=== PATIENT | female | born 1985 | race Caucasian/White ===

== ENCOUNTER → 2021-10-26 | Outpatient (CLI) | payer OTHER ==
[2021-10-26 10:04] LABS: Urine Bacteria FEW /hpf (None Seen); Urine Blood Negative /uL (Negative); Urine Hyaline Cast MANY /lpf (0 - 2); Urine Mucus FEW (None Seen); Urine Specific Gravity 1.031 (1.001-1.035); Urine WBC 3 /hpf (0 - 5)
[2021-10-26 10:10] LABS: Basophils # (auto) 0 10 ^3/uL (0-0.2); Basophils % (auto) 0.5 % (0.0-2.0); Eosinophils # (auto) 0.3 10 ^3/uL (0-0.8); Eosinophils % (auto) 5.3 % (0.0-7.0); Hematocrit 38.4 % (36.0-46.0); Hemoglobin 12.8 g/dL (12.2-16.2); Lymphocytes % (auto) 31.8 % (10.0-50.0); Mean Corpuscular Hemoglobin 29.9 pg (28.0-32.0); Mean Corpuscular Hgb Conc. 33.2 g/dL (32.0-36.0); Mean Corpuscular Volume 90.1 fL (80.0-100.0); Monocytes # (auto) 0.4 10 ^3/uL (0-1.3); Monocytes % (auto) 5.9 % (0.0-12.0); Neutrophils # (auto) 3.6 10 ^3/uL (1.6-8.6); Neutrophils % (auto) 56.5 % (37.0-80.0); Nucleated Red Blood Cells % 0.1 %; Red Blood Cells 4.26 10^6/uL (4.0-5.20); Red Cell Distribution Width 13.9 % (11.8-14.3); White Blood Cell 6.3 10^3/uL (4.4-10.8)
[2021-10-26 10:38] LABS: INR 0.94 (0.9-1.15)
[2021-10-26 10:52] LABS: Potassium 3.3 mmol/L (3.5-5.1)
[2021-10-26 11:02] LABS: Albumin 3.3 g/dL (3.4-5.0); BUN/Creatinine Ratio 13.9; Bilirubin, Total 0.5 mg/dL (0.2-1.0); Calcium 9.1 mg/dL (8.5-10.1); Total Protein 7.3 g/dL (6.4-8.2)
== END | disposition home or self-care (01) ==
LOC: LAB 09:29
PROVIDERS: ATTEND Student in an Organized Health Care Education/Training Program
DX: Z01.812 Encounter for preprocedural laboratory examination (principal); I10 Essential (primary) hypertension; R73.9 Hyperglycemia, unspecified
CPT/HCPCS: 36415; 80053; 81001; 83036; 85025; 85610; 85730

== ENCOUNTER → 2022-05-23 | Outpatient (CLI) | payer MEDICARE, OTHER | END | disposition home or self-care (01) | LOC: LAB 11:03 | PROVIDERS: ATTEND Internal Medicine Pulmonary Disease | DX: Z01.812 Encounter for preprocedural laboratory examination (principal); Z20.822 Contact with and (suspected) exposure to COVID-19 | CPT/HCPCS: 36415 ==

== ENCOUNTER → 2022-05-24 | Outpatient (CLI) | payer MEDICARE, OTHER ==
[~2022-05-24] MED LIST: ALBUTEROL SULF 2.5 MG/0.5ML(0.5%) NEB SOLN ONE
== END | disposition home or self-care (01) ==
LOC: PF 08:10
PROVIDERS: ATTEND Internal Medicine Pulmonary Disease
DX: R06.00 Dyspnea, unspecified (principal); R06.02 Shortness of breath
CPT/HCPCS: 94060; 94727; 94729

== ENCOUNTER 2023-02-07 12:09 | Emergency (ER) | payer MEDICARE, OTHER ==
[~2023-02-07] VITALS: Ht 160 cm; Wt 112.8 kg
[2023-02-07 12:47] VITALS: BP 114/86
[2023-02-07] MEDS ORDERED: DexAMETHasone SOD PHOS 10MG/1ML VIAL INJ IM ONE (13:15)
[2023-02-07] MEDS ORDERED: IPRATROPIUM BROM 0.5 MG/2.5ML INH SOL NEB ONE (13:15)
[2023-02-07] MEDS ORDERED: ALBUTEROL SULF 2.5 MG/0.5ML(0.5%) NEB SOLN NEB ONE (13:15)
[2023-02-07] MEDS ORDERED: ALBU108A5 IN (14:42)
== END 2023-02-07 14:46 | disposition home or self-care (01) ==
LOC: ER 12:09
DX: J45.901 Unspecified asthma with (acute) exacerbation (principal); E66.01 Morbid (severe) obesity due to excess calories; Z68.41 Body mass index [BMI] 40.0-44.9, adult
CPT/HCPCS: 71046; 94640; 96372; 99283; J1100; J7644

== ENCOUNTER → 2023-02-16 | Outpatient (CLI) | payer MEDICARE ==
[~2023-02-16] MED LIST changes: +ALBU108A5 IN; -ALBUTEROL SULF 2.5 MG/0.5ML(0.5%) NEB SOLN ONE
[2023-02-16 10:55] LABS: Basophils # (auto) 0.1 10 ^3/uL (0-0.2); Basophils % (auto) 0.6 % (0.0-2.0); Eosinophils # (auto) 0.5 10 ^3/uL (0-0.8); Eosinophils % (auto) 4.6 % (0.0-7.0); Hematocrit 40.2 % (36.0-46.0); Hemoglobin 13.5 g/dL (12.2-16.2); Lymphocytes # (auto) 2.9 10 ^3/uL (0.4-5.4); Lymphocytes % (auto) 28.8 % (10.0-50.0); Mean Corpuscular Hemoglobin 30.5 pg (28.0-32.0); Mean Corpuscular Hgb Conc. 33.7 g/dL (32.0-36.0); Mean Corpuscular Volume 90.4 fL (80.0-100.0); Monocytes # (auto) 0.6 10 ^3/uL (0-1.3); Neutrophils # (auto) 6.1 10 ^3/uL (1.6-8.6); Red Blood Cells 4.44 10^6/uL (4.0-5.20); Red Cell Distribution Width 14.9 % (11.8-14.3); White Blood Cell 10.1 10^3/uL (4.4-10.8)
[2023-02-16 11:36] LABS: Albumin 3.1 g/dL (3.4-5.0); Potassium 3.4 mmol/L (3.5-5.1)
[2023-02-16 11:44] LABS: BUN/Creatinine Ratio 14.5 (10.0-20.0); Bilirubin, Total 0.4 mg/dL (0.2-1.0); Calcium 9.2 mg/dL (8.5-10.1); Total Protein 7.6 g/dL (6.4-8.2)
[2023-02-16 11:49] LABS: Urine Bacteria NONE SEEN /hpf (None Seen); Urine Blood Negative /uL (Negative); Urine Specific Gravity 1.015 (1.001-1.035); Urine WBC 1 /hpf (0 - 5)
== END | disposition home or self-care (01) ==
LOC: LAB 10:41
PROVIDERS: ATTEND Student in an Organized Health Care Education/Training Program
DX: I10 Essential (primary) hypertension (principal); R73.9 Hyperglycemia, unspecified; E03.8 Other specified hypothyroidism
CPT/HCPCS: 36415; 80053; 80061; 81001; 83036; 84439; 84443; 85025

== ENCOUNTER 2023-07-04 11:43 | Inpatient (IN) | payer MEDICARE, OTHER ==
[~2023-07-04] VITALS: Ht 157.5 cm; Wt 111.5 kg
[2023-07-04 12:48] LABS: Basophils # (auto) 0 10 ^3/uL (0-0.2); Basophils % (auto) 0.4 % (0.0-2.0); Eosinophils # (auto) 0 10 ^3/uL (0-0.8); Eosinophils % (auto) 0.6 % (0.0-7.0); Hematocrit 40.1 % (36.0-46.0); Hemoglobin 13.5 g/dL (12.2-16.2); Lymphocytes # (auto) 1.8 10 ^3/uL (0.4-5.4); Lymphocytes % (auto) 29.2 % (10.0-50.0); Mean Corpuscular Hemoglobin 30.9 pg (28.0-32.0); Mean Corpuscular Hgb Conc. 33.6 g/dL (32.0-36.0); Mean Corpuscular Volume 91.8 fL (80.0-100.0); Monocytes # (auto) 0.7 10 ^3/uL (0-1.3); Monocytes % (auto) 11.7 % (0.0-12.0); Neutrophils # (auto) 3.6 10 ^3/uL (1.6-8.6); Neutrophils % (auto) 58.1 % (37.0-80.0); Red Blood Cells 4.37 10^6/uL (4.0-5.20); Red Cell Distribution Width 13.5 % (11.8-14.3); White Blood Cell 6.1 10^3/uL (4.4-10.8)
[2023-07-04 13:06] LABS: Alanine Aminotransferase 27 U/L (7-40); Albumin 4.4 g/dL (3.2-4.8); Alkaline Phosphatase 92 U/L (46-116); Anion Gap 7 (5-15); Aspartate Aminotransferase 27 U/L (13-40); BUN/Creatinine Ratio 11.5 (10.0-20.0); Blood Urea Nitrogen 12 mg/dL (9-23); Calcium 9.2 mg/dL (8.7-10.4); Carbon Dioxide 28 mmol/L (20-30); Chloride 100 mmol/L (98-107); Glucose 97 mg/dL (74-106); Lipase 65 U/L (12-53); Potassium 3.6 mmol/L (3.5-5.1); Sodium 135 mmol/L (136-145)
[2023-07-04 13:07] LABS: Bilirubin, Total 0.4 mg/dL (0.2-1.0); Total Protein 6.4 g/dL (5.7-8.2)
[2023-07-04 13:26] LABS: Amylase 66 U/L (30-118)
[2023-07-04 14:18] LABS: Urine Bacteria NONE SEEN /hpf (None Seen); Urine Blood TRACE /uL (Negative); Urine Clarity Clear (Clear); Urine Color Yellow (Yellow); Urine Protein, UAD Negative (Negative); Urine Urobilinogen Normal (Negative); Urine WBC 1 /hpf (0 - 5)
[2023-07-04] MEDS ORDERED: MORPHINE SULFATE 4 MG/ML SYR/VIAL IV ONE (17:30)
[2023-07-04] MEDS ORDERED: ONDANSETRON HCL 4 MG/2 ML VIAL IV ONE (17:30)
[2023-07-04] MEDS ORDERED: methylPREDNISolone SOD SUCC 125 MG/2 ML VL IV ONE (17:30)
[2023-07-04] MEDS ORDERED: HYDROcodone-ACET 5/325MG TAB PO PRN (18:00)
[2023-07-04] MEDS ORDERED: ACETAMINOPHEN 325 MG TAB PO PRN (18:00)
[2023-07-04] MEDS ORDERED: DOCUSATE SOD 100 MG CAP PO PRN (18:00)
[2023-07-04 19:19] VITALS: PULSE 91; RESP 20; O2SAT 98
[2023-07-04] MEDS: methylPREDNISolone SOD SUCC 40 MG/ML VL IV SCH (23:05)
[2023-07-04] MEDS: ONDANSETRON HCL 4 MG/2 ML VIAL IV PRN (23:06)
[2023-07-04] MEDS: MORPHINE SULFATE INJ 2 MG/ml SYRG IV PRN (23:06)
[2023-07-05] VITALS (7 sets, daily range): BP systolic 99–163; BP diastolic 54–92; PULSE 65–98; RESP 16–24; TEMP 97.6–98.6; O2SAT 93–99
[2023-07-05] MEDS: ONDANSETRON HCL 4 MG/2 ML VIAL IV PRN ×3 (03:09→15:33)
[2023-07-05] MEDS ORDERED: ATOR10TA52 PO (04:53)
[2023-07-05] MEDS ORDERED: PROP1TAB53 PO (04:53)
[2023-07-05] MEDS ORDERED: ESTR0.3T (04:53)
[2023-07-05] MEDS ORDERED: CHLO25TA2 PO (04:53)
[2023-07-05] MEDS ORDERED: FOLI-119 PO (04:53)
[2023-07-05] MEDS ORDERED: OXYC-998 PO (04:53)
[2023-07-05 07:14] LABS: Basophils # (auto) 0 10 ^3/uL (0-0.2); Eosinophils # (auto) 0 10 ^3/uL (0-0.8); Hematocrit 38.4 % (36.0-46.0); Hemoglobin 12.7 g/dL (12.2-16.2); Lymphocytes % (auto) 24.8 % (10.0-50.0); Mean Corpuscular Hemoglobin 30.1 pg (28.0-32.0); Mean Corpuscular Hgb Conc. 33.1 g/dL (32.0-36.0); Monocytes # (auto) 0.1 10 ^3/uL (0-1.3); Monocytes % (auto) 2.2 % (0.0-12.0); Neutrophils # (auto) 2.9 10 ^3/uL (1.6-8.6); Nucleated Red Blood Cells % 0.1 %; Red Blood Cells 4.22 10^6/uL (4.0-5.20); Red Cell Distribution Width 13.4 % (11.8-14.3); White Blood Cell 3.9 10^3/uL (4.4-10.8)
[2023-07-05 07:18] LABS: Alanine Aminotransferase 22 U/L (7-40); Alkaline Phosphatase 83 U/L (46-116); Anion Gap 11 (5-15); BUN/Creatinine Ratio 10.8 (10.0-20.0); Blood Urea Nitrogen 9 mg/dL (9-23); Calcium 9.6 mg/dL (8.7-10.4); Carbon Dioxide 26 mmol/L (20-30); Chloride 100 mmol/L (98-107); Glucose 146 mg/dL (74-106); Potassium 3.1 mmol/L (3.5-5.1); Sodium 137 mmol/L (136-145)
[2023-07-05 07:19] LABS: Albumin 4.5 g/dL (3.2-4.8); Aspartate Aminotransferase 18 U/L (13-40); Bilirubin, Total 0.3 mg/dL (0.2-1.0); Total Protein 7.2 g/dL (5.7-8.2)
[2023-07-05] MEDS ORDERED: LACTATED RINGER'S 1,000 ML IV SCH (09:30)
[2023-07-05] MEDS: PANTOPRAZOLE 40 MG/10 ML VIAL INJ IV SCH (09:34)
[2023-07-05] MEDS: methylPREDNISolone SOD SUCC 40 MG/ML VL IV SCH ×2 (09:35→21:00)
[2023-07-05] MEDS: MORPHINE SULFATE INJ 2 MG/ml SYRG IV PRN ×3 (09:36→21:00)
[2023-07-06] MEDS: MORPHINE SULFATE INJ 2 MG/ml SYRG IV PRN ×3 (01:14→09:57)
[2023-07-06 05:00] VITALS: BP 111/72; PULSE 81; RESP 18; TEMP 97.9; O2SAT 97
[2023-07-06 08:00] VITALS: PULSE 74; RESP 21
[2023-07-06 08:55] VITALS: BP 117/78; PULSE 108; RESP 18; TEMP 97.7; O2SAT 96
[2023-07-06] MEDS: methylPREDNISolone SOD SUCC 40 MG/ML VL IV SCH (09:57)
[2023-07-06] MEDS: PANTOPRAZOLE 40 MG/10 ML VIAL INJ IV SCH (09:57)
[2023-07-06] MEDS ORDERED: METH2.5T PO (10:07)
[2023-07-06] MEDS ORDERED: DICY10CA PO (11:29)
[2023-07-06] MEDS ORDERED: METH4PAK PO (11:29)
[2023-07-06] MEDS ORDERED: MESA1.2T PO (11:29)
[2023-07-06 12:41] VITALS: TEMP 36.5
[2023-07-06 12:42] VITALS: BP 121/77; PULSE 63; RESP 18; TEMP 97.7; O2SAT 99
== END 2023-07-06 13:15 | disposition home or self-care (01) | DRG 392 ==
LOC: ER 11:43 → OVERFLOW 18:28 → CENTRAL 07-05 03:25
PROVIDERS: ADMIT Nurse Practitioner Family; ATTEND Nurse Practitioner Family
DX: K58.9 Irritable bowel syndrome, unspecified (principal); I10 Essential (primary) hypertension; E78.00 Pure hypercholesterolemia, unspecified; M06.9 Rheumatoid arthritis, unspecified; F31.9 Bipolar disorder, unspecified; F43.10 Post-traumatic stress disorder, unspecified; R00.0 Tachycardia, unspecified; R10.84 Generalized abdominal pain; J45.909 Unspecified asthma, uncomplicated; Z80.3 Family history of malignant neoplasm of breast; Z82.49 Family history of ischemic heart disease and other diseases of the circulatory system; Z83.3 Family history of diabetes mellitus; Z90.710 Acquired absence of both cervix and uterus; Z90.49 Acquired absence of other specified parts of digestive tract
CPT/HCPCS: 36415; 74176; 80053; 81001; 82150; 83690; 84702; 85025; C9113; G0378; J2405

== ENCOUNTER 2023-09-16 12:51 | Emergency (ER) | payer MEDICARE, OTHER ==
[~2023-09-16] VITALS: Ht 160 cm; Wt 114.3 kg
[~2023-09-16 12:51] MED LIST changes: +ATOR10TA52 PO; +CHLO25TA2 PO; +DICY10CA PO; +ESTR0.3T; +FOLI-119 PO; +MESA1.2T PO; +METH2.5T PO; +METH4PAK PO; +OXYC-998 PO; +PROP1TAB53 PO
[2023-09-16 14:49] VITALS: TEMP 97.3; O2SAT 98
[2023-09-16 15:28] VITALS: BP 139/92; PULSE 100; RESP 20
[2023-09-16] MEDS ORDERED: HYDROmorphone HCL 2 MG/ML VL/or syr IM ONE (15:30)
== END 2023-09-16 16:13 | disposition home or self-care (01) ==
LOC: ER 12:51
DX: G89.29 Other chronic pain (principal); M54.50 Low back pain, unspecified; I10 Essential (primary) hypertension; J45.909 Unspecified asthma, uncomplicated; E78.5 Hyperlipidemia, unspecified; Z90.49 Acquired absence of other specified parts of digestive tract; Z90.710 Acquired absence of both cervix and uterus; Z79.2 Long term (current) use of antibiotics; Z79.899 Other long term (current) drug therapy
CPT/HCPCS: 96372; 99283; J1170

== ENCOUNTER 2023-11-16 09:02 | Day surgery (SDC) | payer MEDICARE, OTHER ==
[2023-11-12 10:11] LABS: Basophils # (auto) 0 10 ^3/uL (0-0.2); Basophils % (auto) 0.5 % (0.0-2.0); Eosinophils # (auto) 0.1 10 ^3/uL (0-0.8); Eosinophils % (auto) 1.2 % (0.0-7.0); Hematocrit 40.2 % (36.0-46.0); Hemoglobin 13.3 g/dL (12.2-16.2); Lymphocytes # (auto) 2.8 10 ^3/uL (0.4-5.4); Lymphocytes % (auto) 34.1 % (10.0-50.0); Mean Corpuscular Hemoglobin 30.9 pg (28.0-32.0); Mean Corpuscular Volume 93.6 fL (80.0-100.0); Monocytes # (auto) 0.6 10 ^3/uL (0-1.3); Monocytes % (auto) 7.6 % (0.0-12.0); Neutrophils # (auto) 4.6 10 ^3/uL (1.6-8.6); Neutrophils % (auto) 56.6 % (37.0-80.0); Nucleated Red Blood Cells % 0.1 %; Red Cell Distribution Width 13.6 % (11.8-14.3); White Blood Cell 8.2 10^3/uL (4.4-10.8)
[2023-11-12 10:26] LABS: INR 0.95 (0.9-1.15); Partial Thromboplastin Time 29.3 SEC (24.5-34.5)
[2023-11-12 10:38] LABS: Alanine Aminotransferase 42 U/L (7-40); Albumin 4.4 g/dL (3.2-4.8); Alkaline Phosphatase 86 U/L (46-116); Anion Gap 4 (5-15); Aspartate Aminotransferase 35 U/L (13-40); BUN/Creatinine Ratio 7.2 (10.0-20.0); Bilirubin, Total 0.5 mg/dL (0.2-1.0); Blood Urea Nitrogen 7 mg/dL (9-23); Calcium 9.6 mg/dL (8.5-10.1); Carbon Dioxide 29 mmol/L (20-30); Chloride 105 mmol/L (98-107); Glucose 93 mg/dL (74-106); Potassium 3.8 mmol/L (3.5-5.1); Sodium 138 mmol/L (136-145)
[~2023-11-16] VITALS: Ht 160 cm; Wt 113.4 kg
[~2023-11-16 09:02] MED LIST changes: +AMLO1TAB22 PO; +ESCI1TAB37 PO; +FLUT1AER17 IN; +GABA-1308 PO; +GOLI100I SC; +IPRA0.03; +LORA-622 PO; +LURA40TA2 PO; +OXYC-963 PO; -OXYC-998 PO; +PRA1C PO; +RIZA5TAB OR; +ZOLP10TA PO; +ZOLP5TAB5 PO
[2023-11-16] MEDS ORDERED: diphenhdrAMINE HCL 50 MG/1 ML VL ONE (09:33)
[2023-11-16] MEDS ORDERED: MIDAZOLAM HCL 5 MG/ML-1ML VIAL ONE (09:33)
[2023-11-16] MEDS ORDERED: fentaNYL CITRATE 100 MCG/2 ML VL ONE ×2 (09:33→11:00)
[2023-11-16] MEDS ORDERED: SODIUM CHLORIDE LOCK 10 ML ONE (09:33)
[2023-11-16] MEDS ORDERED: MIDAZOLAM HCL 2MG/2ML 2ml VIAL (1mg/ml) ONE (11:00)
[2023-11-16] MEDS ORDERED: PROPOFOL 10 MG/ML 20 ML IV ONE (11:00)
[2023-11-16] MEDS ORDERED: DexAMETHasone SOD PHOS 10MG/1ML VIAL INJ ONE (11:00)
[2023-11-16] MEDS ORDERED: MEPERIDINE HCL (25 MG/ML) 1ML VIAL ONE (11:00)
[2023-11-16] MEDS ORDERED: KETAMINE 50mg/ML 1ml syringe ONE (12:16)
[2023-11-16 12:31] VITALS: TEMP 97.1; O2SAT 100
[2023-11-16 13:00] VITALS: BP 94/50; PULSE 82; RESP 17; O2SAT 96
== END 2023-11-16 13:10 | disposition home or self-care (01) ==
LOC: GI 09:02
PROVIDERS: ATTEND Internal Medicine Gastroenterology
DX: K58.2 Mixed irritable bowel syndrome (principal); K64.8 Other hemorrhoids; I10 Essential (primary) hypertension; E78.5 Hyperlipidemia, unspecified; J45.909 Unspecified asthma, uncomplicated; E66.9 Obesity, unspecified; K21.9 Gastro-esophageal reflux disease without esophagitis; G43.909 Migraine, unspecified, not intractable, without status migrainosus; M06.9 Rheumatoid arthritis, unspecified; G89.29 Other chronic pain; G62.9 Polyneuropathy, unspecified; G47.30 Sleep apnea, unspecified; F41.9 Anxiety disorder, unspecified; F32.A Depression, unspecified; I25.2 Old myocardial infarction; Z86.73 Personal history of transient ischemic attack (TIA), and cerebral infarction without residual deficits; Z90.710 Acquired absence of both cervix and uterus; Z80.3 Family history of malignant neoplasm of breast; Z83.3 Family history of diabetes mellitus; Z82.49 Family history of ischemic heart disease and other diseases of the circulatory system; Z91.048 Other nonmedicinal substance allergy status; Z79.899 Other long term (current) drug therapy; Z98.890 Other specified postprocedural states
CPT/HCPCS: 36415; 45380; 80053; 81025; 84702; 85025; 85610; 85730; 88305; J1100; J1200; J2175; J2250; J2704; J3010; J7030

== ENCOUNTER → 2024-03-12 | Outpatient (CLI) | payer MEDICARE, OTHER ==
[2024-03-12 15:49] LABS: Basophils # (auto) 0.1 10 ^3/uL (0-0.2); Basophils % (auto) 0.8 % (0.0-2.0); Eosinophils # (auto) 0.1 10 ^3/uL (0-0.8); Eosinophils % (auto) 0.7 % (0.0-7.0); Hematocrit 37.7 % (36.0-46.0); Hemoglobin 12.8 g/dL (12.2-16.2); Lymphocytes % (auto) 35.6 % (10.0-50.0); Mean Corpuscular Volume 91.3 fL (80.0-100.0); Monocytes # (auto) 0.6 10 ^3/uL (0-1.3); Monocytes % (auto) 7.1 % (0.0-12.0); Neutrophils # (auto) 4.7 10 ^3/uL (1.6-8.6); Neutrophils % (auto) 55.8 % (37.0-80.0); Nucleated Red Blood Cells % 0.1 %; Red Blood Cells 4.13 10^6/uL (4.0-5.20); Red Cell Distribution Width 13.5 % (11.8-14.3); White Blood Cell 8.3 10^3/uL (4.4-10.8)
[2024-03-12 16:16] LABS: Alanine Aminotransferase 17 U/L (7-40); Alkaline Phosphatase 81 U/L (46-116); Anion Gap 4 (5-15); Aspartate Aminotransferase 13 U/L (13-40); BUN/Creatinine Ratio 11.2 (10.0-20.0); Bilirubin, Total 0.4 mg/dL (0.2-1.0); Blood Urea Nitrogen 10 mg/dL (9-23); Calcium 9.4 mg/dL (8.7-10.4); Carbon Dioxide 26 mmol/L (20-30); Chloride 108 mmol/L (98-107); Glucose 80 mg/dL (74-106); Lipase 34 U/L (12-53); Potassium 3.7 mmol/L (3.5-5.1); Sodium 138 mmol/L (136-145)
[2024-03-12 16:17] LABS: Total Protein 6.7 g/dL (5.7-8.2)
== END | disposition home or self-care (01) ==
LOC: LAB 15:10
PROVIDERS: ATTEND Student in an Organized Health Care Education/Training Program
DX: K51.20 Ulcerative (chronic) proctitis without complications (principal); R19.7 Diarrhea, unspecified
CPT/HCPCS: 36415; 80053; 83690; 84443; 85025

== ENCOUNTER 2024-06-30 08:17 | Emergency (ER) | payer MEDICARE, OTHER ==
[~2024-06-30] VITALS: Ht 160 cm; Wt 114.8 kg
[~2024-06-30 08:17] MED LIST changes: -PRA1C PO; +PRAZ1CAP2 PO
--- NOTE | 2024-06-30 08:58 | ED.PDOC ---
History of Present Illness HPI Comments 39-year-old female presents with a chief complaint of headache x 3 days with no associated symptoms. Per patient, she has had a constant headache for the past x 3 days. Patient mentions that she usually gets these headaches when she had hypertension. Patient reports that she takes Propanolol to manage her HTN. Patient reports that when she took her BP at home it was 160/110. Chief Complaint: Headache Time Seen by MD: 08:48 Primary Care Provider: BRITTNEY Oneal Notes: Nurses Notes, Medications, Allergies Allergies: Uncoded Allergies: Adhesive tape (Allergy, Severe, Skin peels, blisters, 11/12/23) Home Meds Active Scripts Dicyclomine Hcl (BENTYL CAPSULE) 10 Mg Cp, 1 CAP PO TID, #60 CAP 11 Refills Prov:TOMEKA SHAH MD 07/06/23 Methylprednisolone (Medrol Dosepak) 4 Mg Rudi, 4 MG PO UD, #21 TAB UAD Prov:TOMEKA SHAH MD 07/06/23 Mesalamine (Lialda) 1.2 Gm Tab, 1.2 GM PO BID, #60 TAB Prov:TOMEKA SHAH MD 07/06/23 Albuterol Sulfate (Albuterol Sulfate Hfa) 108 Mcg/Act Aer, 108 MCG IN Q4HP PRN, #1 AER 1 Refill Prov:SHEELA MORFIN PAC 02/07/23 Reported Medications Golimumab (SIMPONI) 100 Mg/Ml Inj, 0.5 ML SC qmonthly, INJ 11/12/23 Zolpidem Tartrate (Zolpidem Tartrate) 5 Mg Tab, 5 MG PO HSPRN, TAB 11/12/23 Zolpidem Tartrate (Ambien) 10 Mg Tab, 10 MG PO, TAB 11/12/23 Pyciotmryjh-Ymuweisneqfq-Xwluz (Trelegy Ellipta 200-62.5-25 Mcg/INH) 1 Aer Aer, 1 AER IN DAILY, AER 11/12/23 Ipratropium [place] (Ipratropium [place]) 0.03 % Spr, 0.03 % NA QID, SPRAY 11/12/23 Rizatriptan Benzoate (RIZATRIPTAN BENZOATE) 5 Mg Tab, 5 MG OR UD, TAB 11/12/23 Loratadine (Claritin) 10 Mg Tab, 10 MG PO DAILY, TAB 11/12/23 Lurasidone Hydrochloride (LATUDA) 40 Mg Tab, 40 MG PO DAILY, TAB 11/12/23 Gabapentin (Gabapentin) 100 Mg Cap, 100 MG PO TID, CAP 11/12/23 Prazosin Hcl (Minipres) 1 Mg Cp, 5 MG PO DAILY, CAP 11/12/23 Escitalopram Oxalate (ESCITALOPRAM OXALATE) 20 Mg Tab, 2 TAB PO DAILY, TAB 11/12/23 Amlodipine Besylate (Amlodipine Besylate) 5 Mg Tab, 5 MG PO DAILY, TAB 11/12/23 Oxycodone W/ Acetaminophen (Oxycodone/Acetaminophen 10-300 mg) 1 Tab Tab, 1 TAB PO Q4HR, TAB 11/12/23 Methotrexate (Methotrexate) 2.5 Mg Tab, 4 TAB PO QWEEKLY, #16 TAB 1 Refill 07/06/23 Propranolol HCl (Propranolol Hydrochloride) 20 Mg Tab, 1 TAB PO BID 07/05/23 Estrogens, Conjugated (PREMARIN TABLET) 0.3 Mg Tb 07/05/23 Chlorthalidone (Chlorthalidone) 25 Mg Tab, 1 TAB PO DAILY 07/05/23 Atorvastatin Calcium (ATORVASTATIN CALCIUM) 10 Mg Tab, 1 TAB PO DAILY 07/05/23 Folic Acid (Folic Acid) 1 Mg Tab, 1 TAB PO DAILY 07/05/23 Information Source: Patient Mode of Arrival: Ambulatory Severity: Moderate Timing: Days Duration: Since onset Prehospital treatment: None Past Medical History PAST MEDICAL HISTORY: Asthma, High Lipids, HTN Surgical History: Cholecystectomy, , Hysterectomy 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 History Family History Family History: Family hx of DM, Family hx of Cancer, Family hx of heart steven Social History Smoker: Non-Smoker Alcohol: Denies ETOH Use Drugs: Denies Drug Use Lives In: Home Constitutional: denies: chills, diaphoresis, fatigue, fever, malaise, sweats, weakness, others EENTM: denies: blurred vision, double vision, ear bleeding, ear discharge, ear drainage, ear pain, ear ringing, eye pain, eye redness, hearing loss, mouth pain, mouth swelling, nasal discharge, nose bleeding, nose congestion, nose pain, photophobia, tearing, throat pain, throat swelling, voice changes, others Respiratory: denies: cough, hemoptysis, orthopnea, SOB at rest, shortness of breath, SOB with excertion, stridor, wheezing, others Cardiovascular: denies: chest pain, dizzy spells, diaphoresis, Dyspnea on exertion, edema, irregular heart beat, left arm pain, lightheadedness, palpitations, PND, syncope, others Gastrointestinal: denies: abdomen distended, abdominal pain, blood streaked bowels, constipated, diarrhea, dysphagia, difficulty swallowing, hematemesis, m tamera, nausea, poor appetite, poor fluid intake, rectal bleeding, rectal pain, vomiting, others Genitourinary: denies: abnormal vagina bleeding, burning, dyspareunia, dysuria, flank pain, frequency, hematuria, incontinence, pain, , vagina discharge, urgency, others Neurological: reports: headache; denies: dizziness, fainting, left sided numbness, left sided weakness, numbness, paresthesia, pre-existing deficit, right sided numbness, right sided weakness, seizure, speech problems, tingling, tremors, weakness, others Musculoskeletal: denies: back pain, gout, joint pain, joint swelling, muscle pain, muscle stiffness, neck pain, others Integumetry: denies: bruises, change in color, change in hair/nails, dryness, laceration, lesions, lumps, rash, wounds, others Allergic/Immunocompromised: denies: Difficulty Healing, Frequent Infections, Hives, Itching, others Hematologic/Lymphatic: denies: anemia, blood clots, easy bleeding, easy bruising, swollen glands, others Endocrine: denies: excessive hunger, excessive sweating, excessive thirst, excessive urination, flushing, intolerance to cold, intolerance to heat, unexplained weight gain, unexplained weight loss, others Psychiatric: denies: anxiety, bipolar disorder, depression, hopeless, panic disorder, schizophrenia, sleepless, suicidal, others All Other Systems: Reviewed and Negative Physical Exam General Appearance: No Apparent Distress HEENT: Normal ENT Inspection, Pharynx Normal, TMs Normal Neck: Full Range of Motion, Non-Tender, Normal, Normal Inspection Respiratory: Chest Non-Tender, Lungs Clear, No Accessory Muscle Use, No Respiratory Distress, Normal Breath Sounds Cardiovascular: No Edema, No JVD, No Murmur, No Gallop, Normal Peripheral Pulses, Regular Rate/Rhythm Breast Exam: Deferred Gastrointestinal: No Organomegaly, Non Tender, No Pulsatile Mass, Normal Bowel Sounds, Soft Genitalia: Deferred Pelvic: Deferred Rectal: Deferred Extremities: No calf tenderness, Normal capillary refill, Normal inspection, Normal range of motion, Non-tender, No pedal edema Musculoskeletal : Apperance: Normal Neurologic: Alert, top precipitator operator II-XII nml as Tested, No Motor Deficits, Normal Affect, Normal Mood, No Sensory Deficits Cerebellar Function: Normal Reflexes: Normal Skin: Dry, Normal Color, Warm Lymphatic: No Adenopathy Was a procedure done? Was a procedure done?: No Differential Dx Considerations may include: Hypertensive urgency, generalized weakness X-Ray, Labs, Meds, VS Vital Signs Date Time Temp Pulse Resp B/P (MAP) Pulse Ox O2 Delivery O2 Flow Rate FiO2 06/30/24 10:00 129/57 06/30/24 10:00 70 16 129/57 (81) 98 06/30/24 09:13 133/91 06/30/24 09:05 61 16 98 Room Air* 0 21 06/30/24 09:00 61 16 98 Room Air 06/30/24 09:00 61 16 133/91 (105) 98 06/30/24 08:33 61 06/30/24 08:32 97.7 73 16 154/108 (123) 97 Current Medications Medications (Trade) Dose Ordered Sig/Megan Route Start Time Stop Time Status Last Admin Acetaminophen/ Hydrocodone Bitart ([place] 10/325MG Tab) 1 tab ONCE ONCE PO 06/30/24 09:00 06/30/24 09:01 DC 06/30/24 09:11 Clonidine HCl (Catapres Tablet) 0.1 mg ONCE ONCE PO 06/30/24 09:15 06/30/24 09:16 DC 06/30/24 09:13 The patient was given clonidine 0.1 mg by mouth The patient was also given [place]well for the pain The blood pressure is now within normal range The patient was being discharged and will follow up with the primary care doctor The patient will return to the emergency department's the condition worsens. Time of 1ST Reevaluation: 09:17 Reevaluation 1ST: Unchanged Patient Education/Counseling: Diagnosis, Treatment, Prognosis, Need For Follow Up Family Education/Counseling: No Family Present Departure 1 Departure Time of Disposition: 10:47 Impression: Primary Impression: Hypertensive urgency Disposition: 01 HOME / SELF CARE / HOMELESS Condition: Fair Discharged With: Self Critical Care Note Critical Care Time?: No Stability Stability form required: No Heart Score Heart Score: Heart Score Response (Comments) Value History N/A 0 EKG N/A 0 Age N/A 0 Risk Factors N/A 0 Troponin N/A 0 Total 0 I personally scribed for ANGELINE NYE MD ([email or web address]) on 06/30/24 at 08:58. Electronically submitted by Paul Newsome ([email or web address]). ANGELINE NYE MD Jun 30, 2024 08:58
[2024-06-30 09:05] VITALS: PULSE 61; RESP 16; O2SAT 98
[2024-06-30] MEDS: HYDROcodone-ACET 10/325MG TAB PO ONE (09:11)
[2024-06-30] MEDS: cloNIDine HCL 0.1 MG TAB PO ONE ×2 (09:13→09:14)
--- NOTE | 2024-06-30 09:19 | ECG ---
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
[2024-06-30 10:00] VITALS: BP 129/57; PULSE 70; RESP 16; O2SAT 98
== END 2024-06-30 10:56 | disposition home or self-care (01) ==
LOC: ER 08:17
DX: I16.0 Hypertensive urgency (principal); I10 Essential (primary) hypertension; J45.909 Unspecified asthma, uncomplicated; R51.9 Headache, unspecified; Z79.899 Other long term (current) drug therapy; Z90.49 Acquired absence of other specified parts of digestive tract; Z90.710 Acquired absence of both cervix and uterus
CPT/HCPCS: 93005

== ENCOUNTER 2024-07-02 17:45 | Emergency (ER) | payer MEDICARE, OTHER ==
[~2024-07-02] VITALS: Ht 160 cm; Wt 111.7 kg
[2024-07-02 17:55] VITALS: BP 131/98; PULSE 83; RESP 18; O2SAT 99
== END 2024-07-02 18:24 | disposition left against medical advice (07) ==
LOC: ER 17:45
DX: M25.511 Pain in right shoulder (principal); Z53.21 Procedure and treatment not carried out due to patient leaving prior to being seen by health care provider; W18.39XA Other fall on same level, initial encounter; Y93.89 Activity, other specified; Y92.091 Bathroom in other non-institutional residence as the place of occurrence of the external cause; Y99.8 Other external cause status

== ENCOUNTER 2024-09-02 15:17 | Inpatient (IN) | payer OTHER, MEDICARE ==
[~2024-09-02] VITALS: Ht 160 cm; Wt 113.4 kg
--- NOTE | 2024-09-02 15:34 | ED.PDOC ---
HPI Comments HPI: Poor Historian. 39-year-old female with multiple medical problems presents to emergency [facility] for evaluation of hypertension systolic blood pressure was in 150s over 100 at home today. The reason she checked her blood pressure this morning is because she started feeling bad last night. Today she took all her prescribed blood pressure medications. She started developing some minimal chest discomfort midsternal nonradiating 2 hours prior to my evaluation. She also complains of some minimal vague top of her head discomfort. Denies any other acute symptoms. Denies any history of tobacco abuse. Patient has positive family history of coronary artery disease. Past Medical History: Hypertension, hyperlipidemia, POTS, arthritis, colitis, fibromyalgia, Past Surgical History: Foot surgery, , total hysterectomy, neck and lumbar fusion, spinal cord stimulator. REVIEW OF SYSTEMS: CONSTITUTIONAL: Denies acute: fever, diaphoresis, chills, generalized weakness. HEAD: Denies acute: photophobia Eyes: Denies acute: Double vision, vision loss, eye pain, eye discharge. EARS: Denies acute: tinnitus, hearing loss, ear discharge, ear pain, THROAT: Denies acute: sore throat, swelling, difficulty swallowing , pain with swallowing, change in voice. NECK: Denies acute: neck pain, neck swelling, stiff neck. HEART: Denies acute : palpitations, LUNGS: Denies acute: SOB, wheezing, cough, hemoptysis ABDOMEN: Denies acute: abdominal pain, Nausea, Vomiting, diarrhea, melena , hematemesis, hematochezia SKIN: Denies acute: rash, redness, lesions, itchiness. EXTREMITIES: Denies acute: calf pain, numbness, tingling, weakness, denies pain in extremity. Denies acute: Low back pain. Neuro: Denies acute: focal neurological deficit, motor or sensory focal neurological deficit, tremors, seizure like activity, confusion, dizziness, change in mental status, loss of bowel or bladder function, cauda equina like symptoms. : Denies acute: dysuria, hematuria, flank pain, increase in urinary frequency. PSYCH: Denies acute: hallucination, suicidal ideation, homicidal ideation. FEMALE: Denies acute: abnormal vaginal bleeding, foul odor, unusual discharge. PHYSICAL EXAM: General: no acute distress, awake and alert. Head: normocephalic, atraumatic. Neck: supple, trachea is midline, no swelling. Throat: Normal phonation. Eyes:, no erythema, no purulent discharge, no proptosis, no icterus. Heart: regular rate, regular rhythm, no significant murmur appreciated. Lungs: no apparent respiratory distress, Able to speak in full sentences. No wheezing, no rhonchi, no crackles. No stridors Clear to auscultation bilaterally. Abdomen: non tender to palpation, non distended, soft, no guarding, no rebound, + bowel sounds. Obese Neuro: Awake, Alert, oriented to name, self, situation, follows commands GCS=15. Speech is normal. Skin: no petechia, no purpura, no cyanosis, non-pale, not jaundice. Lower extremities: --no - Pitting edema no deformity, no focal swelling, no calf TTP. Makes eye contact. moves all four extremities. Face: no apparent facial droop. Ambulating in the ED independently. Chief Complaint: High Blood Pressure Time Seen by MD: 15:25 Primary Care Provider: ZEN Reviewed Notes: Nurses Notes, Medications, Allergies Allergies: Coded Allergies: Doxycycline (Verified Allergy, Intermediate, 09/02/24) Nabumetone (Verified Allergy, Intermediate, 09/02/24) Uncoded Allergies: Adhesive tape (Allergy, Severe, Skin peels, blisters, 11/12/23) Home Meds Active Scripts Dicyclomine Hcl (BENTYL CAPSULE) 10 Mg Cp, 1 CAP PO TID, #60 CAP 11 Refills Prov:TOMEKA SHAH MD 07/06/23 Methylprednisolone (Medrol Dosepak) 4 Mg Rudi, 4 MG PO UD, #21 TAB UAD Prov:TOMEKA SHAH MD 07/06/23 Mesalamine (Lialda) 1.2 Gm Tab, 1.2 GM PO BID, #60 TAB Prov:TOMEKA SHAH MD 07/06/23 Albuterol Sulfate (Albuterol Sulfate Hfa) 108 Mcg/Act Aer, 108 MCG IN Q4HP PRN, #1 AER 1 Refill Prov:SHEELA MORFIN PAC 02/07/23 Reported Medications Oxycodone Hcl (OxyCONTIN ER Tablet) 10 Mg Tb, 1 TAB PO BID, #60 TAB 09/02/24 Golimumab (SIMPONI) 100 Mg/Ml Inj, 0.5 ML SC qmonthly, INJ 11/12/23 Zolpidem Tartrate (Zolpidem Tartrate) 5 Mg Tab, 5 MG PO HSPRN, TAB 11/12/23 Zolpidem Tartrate (Ambien) 10 Mg Tab, 10 MG PO, TAB 11/12/23 Jbpdwfxefcc-Wlnbfbkegvie-Chyjk (Trelegy Ellipta 200-62.5-25 Mcg/INH) 1 Aer Aer, 1 AER IN DAILY, AER 11/12/23 Ipratropium [place] (Ipratropium [place]) 0.03 % Spr, 0.03 % NA QID, SPRAY 11/12/23 Rizatriptan Benzoate (RIZATRIPTAN BENZOATE) 5 Mg Tab, 5 MG OR UD, TAB 11/12/23 Loratadine (Claritin) 10 Mg Tab, 10 MG PO DAILY, TAB 11/12/23 Lurasidone Hydrochloride (LATUDA) 40 Mg Tab, 40 MG PO DAILY, TAB 11/12/23 Gabapentin (Gabapentin) 100 Mg Cap, 100 MG PO TID, CAP 11/12/23 Prazosin Hcl (Minipres) 1 Mg Cp, 5 MG PO DAILY, CAP 11/12/23 Escitalopram Oxalate (ESCITALOPRAM OXALATE) 20 Mg Tab, 2 TAB PO DAILY, TAB 11/12/23 Amlodipine Besylate (Amlodipine Besylate) 5 Mg Tab, 5 MG PO DAILY, TAB 11/12/23 Oxycodone W/ Acetaminophen (Oxycodone/Acetaminophen 10-300 mg) 1 Tab Tab, 1 TAB PO Q4HR, TAB 11/12/23 Methotrexate (Methotrexate) 2.5 Mg Tab, 4 TAB PO QWEEKLY, #16 TAB 1 Refill 07/06/23 Propranolol HCl (Propranolol Hydrochloride) 20 Mg Tab, 1 TAB PO BID 07/05/23 Estrogens, Conjugated (PREMARIN TABLET) 0.3 Mg Tb 07/05/23 Chlorthalidone (Chlorthalidone) 25 Mg Tab, 1 TAB PO DAILY 07/05/23 Atorvastatin Calcium (ATORVASTATIN CALCIUM) 10 Mg Tab, 1 TAB PO DAILY 07/05/23 Folic Acid (Folic Acid) 1 Mg Tab, 1 TAB PO DAILY 07/05/23 Past Medical History PAST MEDICAL HISTORY: Asthma, High Lipids, HTN Surgical History: Cholecystectomy, , Hysterectomy 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 Was a procedure done?: No X-Ray, Labs, Meds, VS Vital Signs Date Time Temp Pulse Resp B/P (MAP) Pulse Ox O2 Delivery O2 Flow Rate FiO2 09/02/24 16:49 139/91 09/02/24 16:34 98.5 89 18 139/91 (107) 97 98.5 09/02/24 15:49 154/102 09/02/24 15:46 86 17 100 Room Air* 0 21 09/02/24 15:42 98.5 86 17 154/102 (119) 100 98.5 09/02/24 15:35 78 09/02/24 15:33 98.0 92 18 148/90 (109) 99 Lab Test 09/02/24 18:51 09/02/24 16:21 09/02/24 16:00 09/02/24 15:38 Range/Units Troponin I High Sensitivity < 3 L < 3 L < 3 L </=34 ng/L Urine Color Yellow Yellow Urine Clarity Turbid H Clear Urine pH 6.0 5.0-9.0 Urine Specific [place] 1.022 1.001-1.035 Urine Protein Negative Negative Urine Ketones Negative Negative Urine Blood 1+ H Negative /uL Urine Nitrite Negative Negative Urine Bilirubin Negative Negative Urine Urobilinogen Normal Negative mg/dL Urine Leukocyte Esterase 3+ Negative /uL Urine RBC 5 0 - 4 /hpf Urine Microscopic WBC 31 H 0-5 /HPF Urine Squamous Epithelial Cells Few <5 /hpf Urine Bacteria None seen None Seen /hpf Urine Mucus Few None Seen Urine Glucose Normal Normal mg/dL White Blood Count 8.9 4.4-10.8 10^3/uL Red Blood Count 4.17 4.0-5.20 10^6/uL Hemoglobin 13.1 12.2-16.2 g/dL Hematocrit 38.7 36.0-46.0 % Mean Corpuscular Volume 92.9 80.0-100.0 fL Mean Corpuscular Hemoglobin 31.4 28.0-32.0 pg Mean Corpuscular Hemoglobin Concent 33.8 32.0-36.0 g/dL Red Cell Distribution Width 14.2 11.8-14.3 % Platelet Count 362 140-450 10^3/uL Mean Platelet Volume 7.1 6.9-10.8 fL Neutrophils (%) (Auto) 53.5 37.0-80.0 % Lymphocytes (%) (Auto) 31.8 10.0-50.0 % Monocytes (%) (Auto) 5.7 0.0-12.0 % Eosinophils (%) (Auto) 8.5 H 0.0-7.0 % Basophils (%) (Auto) 0.5 0.0-2.0 % Neutrophils # (Auto) 4.8 1.6-8.6 10 ^3/uL Lymphocytes # (Auto) 2.8 0.4-5.4 10 ^3/uL Monocytes # (Auto) 0.5 0-1.3 10 ^3/uL Eosinophils # (Auto) 0.8 0-0.8 10 ^3/uL Basophils # (Auto) 0 0-0.2 10 ^3/uL Nucleated Red Blood Cells 0.0 % Sodium Level 142 136-145 mmol/L Potassium Level 4.4 3.5-5.1 mmol/L Chloride Level 104 98-107 mmol/L Carbon Dioxide Level 32 H 20-31 mmol/L Anion Gap 6 5-15 Blood Urea Nitrogen 12 9-23 mg/dL Creatinine 0.99 0.550-1.02 mg/dL Glomerular Filtration Rate Calc 74 >90 mL/min BUN/Creatinine Ratio 12.1 10.0-20.0 Serum Glucose 102 74-106 mg/dL Calcium Level 10.5 H 8.7-10.4 mg/dL Total Bilirubin 0.6 0.2-1.0 mg/dL Aspartate Amino Transferase (AST) 19 13-40 U/L Alanine Aminotransferase (ALT) 24 7-40 U/L Alkaline Phosphatase 97 46-116 U/L B-Type Natriuretic Peptide 30.08 0-100 pg/mL Total Protein 7.0 5.7-8.2 g/dL Albumin 4.7 3.2-4.8 g/dL Current Medications Medications (Trade) Dose Ordered Sig/Megan Route Start Time Stop Time Status Last Admin Aspirin 325 mg ONCE ONCE PO 09/02/24 15:30 09/02/24 15:33 DC 09/02/24 15:49 Nitroglycerin (Ntrostat Sublingual) 0.4 mg ONCE ONCE SL 09/02/24 15:30 09/02/24 15:33 DC 09/02/24 15:[address] [address] Ph: [phone] DIAGNOSTIC IMAGING Diagnostic Imaging Report : [id number] Signed PATIENT: ELIZA ROTH ACCT: [id number] UNIT: [id number] : 1985 LOC: ER ROOM / BED: / AGE / SEX: 39 / F ADM STATUS: REG ER SERVICE 160 ORDERING PHYSICIAN: DELMY MCKENZIE DO PROCEDURE(s): HWOCT - HEAD WITHOUT CONTRAST REASON: htn, headache ORDER NUMBER(s): [id number], ACCESSION NUMBER(s): [id number] EXAM: CT HEAD WITHOUT CONTRAST HISTORY: htn, headache COMPARISON: None TECHNIQUE: Axial images of the head were obtained and reformatted in coronal and sagittal planes. All CT scans at this medical facility are performed using dose modulation techniques as appropriate to a performed exam including the following: Automated exposure control was utilized; adjustment of the MA and/or KV according to patient size; and use of iterative reconstruction technique. CT Dose: CTDI volume is 52.57 mGy. Dose-length product is 842.91 mGy*cm FINDINGS: There is no evidence of acute intracranial hemorrhage, mass, mass effect midline shift. There is no hydrocephalus or extra-axial fluid collection. Pena-white m atter differentiation is maintained. The visualized paranasal sinuses and mastoid air cells are clear. The calvarium is intact. IMPRESSION: 1. No acute intracranial process. HS:Y ATED BY: MICHAEL KENT MD DICTATED DATE/TIME: 09/02/241622 SIGNED BY: MICHAEL KENT MD SIGNED DATE/TIME: 09/02/241622 CC: [address] [address] Ph: [phone] DIAGNOSTIC IMAGING Diagnostic Imaging Report : [id number] Signed PATIENT: ELIZA ROTH ACCT: [id number] UNIT: [id number] : 1985 LOC: ER ROOM / BED: / AGE / SEX: 39 / F ADM STATUS: REG ER SERVICE 1530 ORDERING PHYSICIAN: DELMY MCKENZIE DO PROCEDURE(s): CXRP - CHEST PORTABLE REASON: HTN, cp ORDER NUMBER(s): [id number], ACCESSION NUMBER(s): [id number] CHEST RADIOGRAPH Indication: HTN, cp Technique: Single frontal view of the chest was obtained Comparison: None FINDINGS: Lines and Tubes: None Lungs: No focal consolidation. Pleura: No effusion. No pneumothorax. Cardiomediastinal contours: Unremarkable Bones: No acute osseous abnormality. IMPRESSION: No acute cardiopulmonary disease. ATED BY: CARLOS MOCTEZUMA MD DICTATED DATE/TIME: 09/02/241614 SIGNED BY: CARLOS MOCTEZUMA MD SIGNED DATE/TIME: 09/02/241614 CC: Reevaluation 1ST: Unchanged Patient Education/Counseling: Diagnosis, Treatment Family Education/Counseling: No Family Present Comments Patient presented with the above HPI. HTN workup was initiated. patient was found with the above mentioned diagnosis. the following medications were ordered: chlorthalidone, propranolol, acetaminophen, Zofran, Restoril, clonidine, ceftriaxone, atorvastatin, amlodi pine, NTG, ASA the following tests were ordered: troponin, EKG, UA, lactic acid, CMP, CBC, BMP, BNP, PTPTT, CXR, CT head w/o contrast, troponin Patient ED course and VS have been stabilized. Patient has been reassessed in the ED and remained in a stable condition. Pertinent incidental findings were discussed with the patient and/or family. Patient/family voices understanding and is agreeable with plan. Patient has been observed in the ED adequate length of time to insure improvement/stability. Escalation of care considered: Consideration of escalation to observation or admission Patient was ADMITTED to the medicine team for further evaluation and treatment of their presentation. All the reports of any imaging studies that were ordered by myself were reviewed by myself. Departure 1 Departure Time of Disposition: 17:02 Impression: Primary Impression: Chest pain Additional Impression: Hypertension Disposition: ADMITTED INPATIENT Admit to: Tele Condition: Guarded Discharged With: Self Critical Care Note Critical Care Time?: No Heart Score Heart Score: Heart Score Response (Comments) Value History Slightly Suspicious 0 EKG Normal 0 Age <45 0 Risk Factors >3 or Hx ASHD 2 Troponin Normal limit 0 Total 2 I personally scribed for DELMY MCKENZIE DO ([email or web address]) on 09/02/24 at 16:41. Electronically submitted by Mehul Serrano ([email or web address]). I personally scribed for DELMY MCKENZIE DO ([email or web address]) on 09/02/24 at 20:56. Electronically submitted by William Perez ([email or web address]). I personally scribed for DELMY MCKENZIE DO ([email or web address]) on 09/03/24 at 00:18. Electronically submitted by William Perez ([email or web address]). DELMY MCKENZIE DO Sep 02, 2024 15:34
[2024-09-02 15:46] VITALS: PULSE 86; RESP 17; O2SAT 100
[2024-09-02] MEDS: NITROGLYCERIN 0.4 MG SL TAB SL ONE (15:49)
[2024-09-02] MEDS: ASPirin 325 MG TAB PO ONE (15:49)
[2024-09-02 15:55] LABS: Basophils # (auto) 0 10 ^3/uL (0-0.2); Basophils % (auto) 0.5 % (0.0-2.0); Eosinophils # (auto) 0.8 10 ^3/uL (0-0.8); Eosinophils % (auto) 8.5 % (0.0-7.0); Hematocrit 38.7 % (36.0-46.0); Hemoglobin 13.1 g/dL (12.2-16.2); Lymphocytes # (auto) 2.8 10 ^3/uL (0.4-5.4); Lymphocytes % (auto) 31.8 % (10.0-50.0); Mean Corpuscular Hemoglobin 31.4 pg (28.0-32.0); Mean Corpuscular Hgb Conc. 33.8 g/dL (32.0-36.0); Mean Corpuscular Volume 92.9 fL (80.0-100.0); Monocytes # (auto) 0.5 10 ^3/uL (0-1.3); Monocytes % (auto) 5.7 % (0.0-12.0); Neutrophils # (auto) 4.8 10 ^3/uL (1.6-8.6); Neutrophils % (auto) 53.5 % (37.0-80.0); Platelet Count (auto) 362 10^3/uL (140-450); Red Blood Cells 4.17 10^6/uL (4.0-5.20); Red Cell Distribution Width 14.2 % (11.8-14.3); White Blood Cell 8.9 10^3/uL (4.4-10.8)
[2024-09-02 16:15] LABS: Alanine Aminotransferase 24 U/L (7-40); Albumin 4.7 g/dL (3.2-4.8); Alkaline Phosphatase 97 U/L (46-116); Anion Gap 6 (5-15); Aspartate Aminotransferase 19 U/L (13-40); BUN/Creatinine Ratio 12.1 (10.0-20.0); Blood Urea Nitrogen 12 mg/dL (9-23); Chloride 104 mmol/L (98-107); Glucose 102 mg/dL (74-106); Potassium 4.4 mmol/L (3.5-5.1); Sodium 142 mmol/L (136-145)
[2024-09-02 16:16] LABS: Bilirubin, Total 0.6 mg/dL (0.2-1.0)
--- NOTE | 2024-09-02 16:17 | DVH ---
CHEST RADIOGRAPH Indication: HTN, cp Technique: Single frontal view of the chest was obtained Comparison: None FINDINGS: Lines and Tubes: None Lungs: No focal consolidation. Pleura: No effusion. No pneumothorax. Cardiomediastinal contours: Unremarkable Bones: No acute osseous abnormality. IMPRESSION: No acute cardiopulmonary disease.
[2024-09-02 16:23] LABS: Calcium 10.5 mg/dL (8.7-10.4); Carbon Dioxide 32 mmol/L (20-31)
--- NOTE | 2024-09-02 16:26 | DVH ---
EXAM: CT HEAD WITHOUT CONTRAST HISTORY: htn, headache COMPARISON: None TECHNIQUE: Axial images of the head were obtained and reformatted in coronal and sagittal planes. All CT scans at this medical facility are performed using dose modulation techniques as appropriate t o a performed exam including the following: Automated exposure control was utilized; adjustment of th e MA and/or KV according to patient size; and use of iterative reconstruction technique. CT Dose: CTDI volume is 52.57 mGy. Dose-length product is 842.91 mGy*cm FINDINGS: There is no evidence of acute intracranial hemorrhage, mass, mass effect midline shift. There is no h ydrocephalus or extra-axial fluid collection. Pena-white matter differentiation is maintained. The visualized paranasal sinuses and mastoid air cells are clear. The calvarium is intact. IMPRESSION: 1. No acute intracranial process. HS:Y
[2024-09-02 16:34] VITALS: BP 139/91
[2024-09-02 17:15] LABS: Urine Bacteria None Seen /hpf (None Seen)
[2024-09-02 17:35] LABS: Urine Blood 1+ /uL (Negative); Urine Clarity Turbid (Clear); Urine Color Yellow (Yellow); Urine Mucus FEW (None Seen); Urine Protein, UAD Negative (Negative); Urine Specific Gravity 1.022 (1.001-1.035); Urine Squamous Epithelial Cell FEW /hpf (<5); Urine Urobilinogen Normal (Negative); Urine WBC 31 /HPF (0-5)
[2024-09-02] MEDS ORDERED: ONDANSETRON HCL 4 MG/2 ML VIAL IV PRN (19:45)
[2024-09-02] MEDS ORDERED: TEMAZEPAM 15 MG CAP PO PRN (19:45)
[2024-09-02] MEDS ORDERED: cloNIDine HCL 0.1 MG TAB PO PRN (19:45)
[2024-09-02] MEDS ORDERED: ACETAMINOPHEN 325 MG TAB PO PRN (19:45)
--- NOTE | 2024-09-02 20:51 | DVHHP2 ---
History of Present Illness Reason for Visit: High blood pressure History of Present Illness 39year old female presents for evaluation elevated blood pressure. Patient reports a two day history of having blood pressure of than 115. She states that today she developed a frontal throbbing headache and also substernal sharp/press ure-like chest pain that was radiating to left arm. She states the chest pain has subsided. Denies blurred vision or unilateral weakness. No other acute complaints reported. Past Medical History Dyslipidemia, hypertension, fibromyalgia, POTS Past Surgical History Hysterectomy, spinal cord stimulator, foot surgery Family History Noncontributory Smoke: No ALCOHOL: none Drugs: None Lives: with Family Review of Systems Review of Systems Review of systems are currently negative otherwise addressed HPI. Allergies: Coded Allergies: Doxycycline (Verified Allergy, Intermediate, 09/02/24) Nabumetone (Verified Allergy, Intermediate, 09/02/24) Uncoded Allergies: Adhesive tape (Allergy, Severe, Skin peels, blisters, 11/12/23) Medications Current Medications Medications Dose Ordered Sig/Megan Route Start Time Stop Time Status Last Admin Dose Admin Amlodipine Besylate 5 mg DAILY PO 09/03/24 10:00 Atorvastatin Calcium 10 mg HS PO 09/02/24 22:00 Ceftriaxone Sodium 50 ml @ 100 mls/hr DAILY@09 IV 09/03/24 09:00 Clonidine HCl 0.1 mg Q6HP PRN PO 09/02/24 19:45 Temazepam 15 mg QHSP PRN PO 09/02/24 19:45 Ondansetron HCl 4 mg Q4HP PRN IV 09/02/24 19:45 Acetaminophen 650 mg Q6HP PRN PO 09/02/24 19:45 Exam Vital Signs Vital Signs Date Time Temp Pulse Resp B/P (MAP) Pulse Ox O2 Delivery O2 Flow Rate FiO2 09/02/24 16:49 139/91 09/02/24 16:34 98.5 89 18 97 98.5 09/02/24 15:46 Room Air* 0 21 Exam Gen: 39-year-old female in mild distress Skin: Warm, dry, normal color and texture, no rash. HEENT: Normocephalic atraumatic, mucous membranes moist and pink. Neck: Cervical and supraclavicular nodes normal without enlargement, trachea is midline, thyroid gland is normal without masses. Pulmonary: Clear to auscultation and percussion bilaterally. Cardiac: Regular rate and rhythm. No murmur Abdomen: Soft, nontender, nondistended, bowel sounds present all 4 quadrants, no guarding, no rigidity, no organomegaly. Extremities: No cyanosis, clubbing, no edema Neuro: Cranial nerves II through XII grossly intact, normal affect and speech, no focal motor deficits. Labs/Xrays ORDERING PHYSICIAN: DELMY MCKENZIE DO PROCEDURE(s): CXRP - CHEST PORTABLE REASON: HTN, cp ORDER NUMBER(s): [id number], ACCESSION NUMBER(s): [id number] CHEST RADIOGRAPH Indication: HTN, cp Technique: Single frontal view of the chest was obtained Comparison: None FINDINGS: Lines and Tubes: None Lungs: No focal consolidation. Pleura: No effusion. No pneumothorax. Cardiomediastinal contours: Unremarkable Bones: No acute osseous abnormality. IMPRESSION: No acute cardiopulmonary disease. RING PHYSICIAN: DELMY MCKENZIE DO PROCEDURE(s): HWOCT - HEAD WITHOUT CONTRAST REASON: htn, headache ORDER NUMBER(s): [id number], ACCESSION NUMBER(s): [id number] EXAM: CT HEAD WITHOUT CONTRAST HISTORY: htn, headache COMPARISON: None TECHNIQUE: Axial images of the head were obtained and reformatted in coronal and sagittal planes. All CT scans at this medical facility are performed using dose modulation techniques as appropriate to a performed exam including the following: Automated exposure control was utilized; adjustment of the MA and/or KV according to patient size; and use of iterative reconstruction technique. CT Dose: CTDI volume is 52.57 mGy. Dose-length product is 842.91 mGy*cm FINDINGS: There is no evidence of acute intracranial hemorrhage, mass, mass effect midline shift. There is no hydrocephalus or extra-axial fluid collection. Pena-white matter differentiation is maintained. The visualized paranasal sinuses and mastoid air cells are clear. The calvarium is intact. IMPRESSION: 1. No acute intracranial process. HS:Y Labs Test 09/02/24 18:51 09/02/24 16:00 09/02/24 15:38 Range/Units Troponin I High Sensitivity < 3 L </=34 ng/L Urine Color Yellow Yellow Urine Clarity Turbid H Clear Urine pH 6.0 5.0-9.0 Urine Specific [place] 1.022 1.001-1.035 Urine Protein Negative Negative Urine Ketones Negative Negative Urine Blood 1+ H Negative /uL Urine Nitrite Negative Negative Urine Bilirubin Negative Negative Urine Urobilinogen Normal Negative mg/dL Urine Leukocyte Esterase 3+ Negative /uL Urine RBC 5 0 - 4 /hpf Urine Microscopic WBC 31 H 0-5 /HPF Urine Squamous Epithelial Cells Few <5 /hpf Urine Bacteria None seen None Seen /hpf Urine Mucus Few None Seen Urine Glucose Normal Normal mg/dL White Blood Count 8.9 4.4-10.8 10^3/uL Red Blood Count 4.17 4.0-5.20 10^6/uL Hemoglobin 13.1 12.2-16.2 g/dL Hematocrit 38.7 36.0-46.0 % Mean Corpuscular Volume 92.9 80.0-100.0 fL Mean Corpuscular Hemoglobin 31.4 28.0-32.0 pg Mean Corpuscular Hemoglobin Concent 33.8 32.0-36.0 g/dL Red Cell Distribution Width 14.2 11.8-14.3 % Platelet Count 362 140-450 10^3/uL Mean Platelet Volume 7.1 6.9-10.8 fL Neutrophils (%) (Auto) 53.5 37.0-80.0 % Lymphocytes (%) (Auto) 31.8 10.0-50.0 % Monocytes (%) (Auto) 5.7 0.0-12.0 % Eosinophils (%) (Auto) 8.5 H 0.0-7.0 % Basophils (%) (Auto) 0.5 0.0-2.0 % Neutrophils # (Auto) 4.8 1.6-8.6 10 ^3/uL Lymphocytes # (Auto) 2.8 0.4-5.4 10 ^3/uL Monocytes # (Auto) 0.5 0-1.3 10 ^3/uL Eosinophils # (Auto) 0.8 0-0.8 10 ^3/uL Basophils # (Auto) 0 0-0.2 10 ^3/uL Nucleated Red Blood Cells 0.0 % Sodium Level 142 136-145 mmol/L Potassium Level 4.4 3.5-5.1 mmol/L Chloride Level 104 98-107 mmol/L Carbon Dioxide Level 32 H 20-31 mmol/L Anion Gap 6 5-15 Blood Urea Nitrogen 12 9-23 mg/dL Creatinine 0.99 0.550-1.02 mg/dL Glomerular Filtration Rate Calc 74 >90 mL/min BUN/Creatinine Ratio 12.1 10.0-20.0 Serum Glucose 102 74-106 mg/dL Calcium Level 10.5 H 8.7-10.4 mg/dL Total Bilirubin 0.6 0.2-1.0 mg/dL Aspartate Amino Transferase (AST) 19 13-40 U/L Alanine Aminotransferase (ALT) 24 7-40 U/L Alkaline Phosphatase 97 46-116 U/L B-Type Natriuretic Peptide 30.08 0-100 pg/mL Total Protein 7.0 5.7-8.2 g/dL Albumin 4.7 3.2-4.8 g/dL Assessment/Plan Assessment/Plan Assessment Hypertensive crisis Morbid obesity Urinary tract infection History of POTS Plan Admit the patient to [facility] to the hospitalist As needed antihypertensives Resume home medications Echocardiogram pending Continue treatment per orders. Plan discussed with: Patient My Orders Orders - CASEY MC AGACNP Procedure Category Date Status Time Amlodipine Tablet PHA 09/03/24 In Process (Norvasc Tablet) 10:00 Atorvastatin (Lipitor) PHA 09/02/24 In Process 22:00 Ceftriaxone 1gm/50ml PHA 09/03/24 In Process D5w (Rocephin) 09:00 Clonidine Hcl Tablet PHA 09/02/24 In Process (Catapres Tablet) 19:45 Basic Metabolic Panel LAB 09/03/24 Verified 04:00 Admit ADMIT 09/02/24 Transmitted 19:35 Temazepam (Restoril) PHA 09/02/24 In Process 19:45 Ondansetron Hcl PHA 09/02/24 In Process (Zofran) 19:45 Cardiac DIET 09/03/24 Transmitted Diet-2gna,Lofat,Lochol Breakfast Echo 2d Mode Cardiac US 09/02/24 Logged DOP 19:35 Condition: Stable NELDA 09/02/24 In Process 19:35 Acetaminophen Tablet PHA 09/02/24 In Process (Tylenol Tablet) 19:45 Bedrest With Bathroom NELDA 1/21/25 In Process Privileg 19:35 Date of Service: Sep 02, 2024 Billing Provider: CASEY MC Common Visit Codes: [id number] INP/OBS CARE (MOD) CASEY MC Sep 02, 2024 20:51
[2024-09-02 21:24] VITALS: BP 135/78; PULSE 78; RESP 18; TEMP 97.6; O2SAT 100
[2024-09-02 21:57] VITALS: PULSE 78; RESP 20; O2SAT 100
[2024-09-02] MEDS: PROPRANOLOL HCL 20 MG TAB PO SCH (22:28)
[2024-09-02] MEDS: ATORVASTATIN 20 MG TAB PO SCH (22:29)
[2024-09-02] MEDS ORDERED: OXY10CRT PO (22:51)
[2024-09-02] MEDS: HYDROcodone-ACET 5/325MG TAB PO PRN (23:54)
[2024-09-03] MEDS: cefTRIAXone 1GM/50ML D5W 50 ML IV ONE (00:42)
[2024-09-03] MEDS ORDERED: CHLORTHALIDONE 25 MG TAB PO SCH (08:00)
--- NOTE | 2024-09-03 08:54 | ECG ---
[facility] Test Date: 2024-09-02 Test Time: 15:35:54 Pat Name: ELIZA ROTH Department: ER Room: [address] [place] [address] A Gender: F Press Manager: SIVAKUMAR : 1985 Requested By: DELMY MCKENZIE Order Number: [id number] Reading MD: Lyndon Jasso Measurements Intervals [place] Rate: 78 P: 45 IA: 174 QRS: -38 QRSD: 96 T: 23 QT: 395 QTc: 450 Interpretive Statements Sinus rhythm Low voltage, precordial leads RSR' in V1 or V2, right VCD or RVH Left ventricular hypertrophy Borderline T abnormalities, anterior leads Electronically Signed On 09-04-2024 16:39:46 PST by Lyndon Jasso Please click the below link to view image of tracing.
[2024-09-03] MEDS ORDERED: cefTRIAXone 1GM/50ML D5W 50 ML IV SCH (09:00)
[2024-09-03] MEDS ORDERED: amLODIPine BESYLATE 5 MG TAB PO SCH (10:00)
--- NOTE | 2024-09-03 14:25 | DVHDSRES ---
Discharge Summary Date of Admission Resident Creating Document: YADIRA MON RESIDENT Sep 02, 2024 at 19:35 Date of Discharge: Sep 03, 2024 Admitting Diagnosis hypertensive urgency Labs/Diagnostic Data: Laboratory Results Test 09/02/24 18:51 09/02/24 16:00 09/02/24 15:38 Troponin I High Sensitivity < 3 ng/L (</=34) Urine Color Yellow (Yellow) Urine Clarity Turbid (Clear) Urine pH 6.0 (5.0-9.0) Urine Specific [place] 1.022 (1.001-1.035) Urine Protein Negative (Negative) Urine Ketones Negative (Negative) Urine Blood 1+ /uL (Negative) Urine Nitrite Negative (Negative) Urine Bilirubin Negative (Negative) Urine Urobilinogen Normal mg/dL (Negative) Urine Leukocyte Esterase 3+ /uL (Negative) Urine RBC 5 /hpf (0 - 4) Urine Microscopic WBC 31 /HPF (0-5) Urine Squamous Epithelial Cells Few /hpf (<5) Urine Bacteria None seen /hpf (None Seen) Urine Mucus Few (None Seen) Urine Glucose Normal mg/dL (Normal) White Blood Count 8.9 10^3/uL (4.4-10.8) Red Blood Count 4.17 10^6/uL (4.0-5.20) Hemoglobin 13.1 g/dL (12.2-16.2) Hematocrit 38.7 % (36.0-46.0) Mean Corpuscular Volume 92.9 fL (80.0-100.0) Mean Corpuscular Hemoglobin 31.4 pg (28.0-32.0) Mean Corpuscular Hemoglobin Concent 33.8 g/dL (32.0-36.0) Red Cell Distribution Width 14.2 % (11.8-14.3) Platelet Count 362 10^3/uL (140-450) Mean Platelet Volume 7.1 fL (6.9-10.8) Neutrophils (%) (Auto) 53.5 % (37.0-80.0) Lymphocytes (%) (Auto) 31.8 % (10.0-50.0) Monocytes (%) (Auto) 5.7 % (0.0-12.0) Eosinophils (%) (Auto) 8.5 % (0.0-7.0) Basophils (%) (Auto) 0.5 % (0.0-2.0) Neutrophils # (Auto) 4.8 10 ^3/uL (1.6-8.6) Lymphocytes # (Auto) 2.8 10 ^3/uL (0.4-5.4) Monocytes # (Auto) 0.5 10 ^3/uL (0-1.3) Eosinophils # (Auto) 0.8 10 ^3/uL (0-0.8) Basophils # (Auto) 0 10 ^3/uL (0-0.2) Nucleated Red Blood Cells 0.0 % Sodium Level 142 mmol/L (136-145) Potassium Level 4.4 mmol/L (3.5-5.1) Chloride Level 104 mmol/L (98-107) Carbon Dioxide Level 32 mmol/L (20-31) Anion Gap 6 (5-15) Blood Urea Nitrogen 12 mg/dL (9-23) Creatinine 0.99 mg/dL (0.550-1.02) Glomerular Filtration Rate Calc 74 mL/min (>90) BUN/Creatinine Ratio 12.1 (10.0-20.0) Serum Glucose 102 mg/dL (74-106) Calcium Level 10.5 mg/dL (8.7-10.4) Total Bilirubin 0.6 mg/dL (0.2-1.0) Aspartate Amino Transferase (AST) 19 U/L (13-40) Alanine Aminotransferase (ALT) 24 U/L (7-40) Alkaline Phosphatase 97 U/L (46-116) B-Type Natriuretic Peptide 30.08 pg/mL (0-100) Total Protein 7.0 g/dL (5.7-8.2) Albumin 4.7 g/dL (3.2-4.8) Other Laboratory Tests 09/02/24 15:38 Brief Hx & Hospital Course: This 39-year-old female presented with a two-day history of elevated blood pressure (160/100) and symptoms of a frontal throbbing headache, as well as substernal sharp chest pain radiating to the left arm, which had since resolved. Her past medical history includes dyslipidemia, hypertension, fibromyalgia, and postural orthostatic tachycardia syndrome (POTS). Evaluation revealed hypertensive urgency with no other acute findings on presentation. Head CT scan was normal. troponins negative. UA suggestive of UTI The patient was started on antihypertensive therapy, and plans were made to resume her home medications. An echocardiogram was ordered. Unfortunately, the patient elected to leave the hospital against medical advice (AMA) before completing her full evaluation and treatment. The discharge summary has been prepared based on information available in the electronic medical record (EMR) as I did not personally evaluate the patient during this hospitalization. Case discussed with Dr Duran Operations or Procedures EXAM: CT HEAD WITHOUT CONTRAST HISTORY: htn, headache COMPARISON: None TECHNIQUE: Axial images of the head were obtained and reformatted in coronal and sagittal planes. All CT scans at this medical facility are performed using dose modulation techniques as appropriate to a performed exam including the following: Automated exposure control was utilized; adjustment of the MA and/or KV according to patient size; and use of iterative reconstruction technique. CT Dose: CTDI volume is 52.57 mGy. Dose-length product is 842.91 mGy*cm FINDINGS: There is no evidence of acute intracranial hemorrhage, mass, mass effect midline shift. There is no hydrocephalus or extra-axial fluid collection. Pena-white matter differentiation is maintained. The visualized paranasal sinuses and mastoid air cells are clear. The calvarium is intact. IMPRESSION: 1. No acute intracranial process. Condition at Discharge: Poor Final Diagnosis/Problems List Hypertensive Urgency Morbid obesity Urinary tract infection History of POTS Discharge Disposition: AMA Discharge Statement: "Patient was advised to return to the ER or call 911 if any headaches, dizziness, shortness of breath, chest pain, abdominal pain, bleeding, fevers, or worsening of medical condition. Patient was counseled about treatment plan, medications, possible side effects, patientverbalized understanding. All questions were answered to the best of my ability. This discharge took greater then 30 minutes in planning, reviewing documentation, counseling the patient, and discussing with other team members." ASSESSMENT ASSESSMENT Assessment Date of Service: Sep 03, 2024 Billing Provider: JORI DURAN MD Common Visit Codes: [id number] INP/OBS CARE(HIGH) YADIRA MON RESIDENT Sep 03, 2024 14:25 JORI DURAN MD Sep 03, 2024 23:24
== END 2024-09-03 04:17 | disposition left against medical advice (07) | DRG 305 ==
LOC: ER 15:17 → OVERFLOW 19:35
PROVIDERS: ADMIT Internal Medicine; ATTEND Internal Medicine
DX: I16.9 Hypertensive crisis, unspecified (principal); N39.0 Urinary tract infection, site not specified; Z68.41 Body mass index [BMI] 40.0-44.9, adult; E66.01 Morbid (severe) obesity due to excess calories; E78.5 Hyperlipidemia, unspecified; I10 Essential (primary) hypertension; J45.909 Unspecified asthma, uncomplicated; Z53.29 Procedure and treatment not carried out because of patient's decision for other reasons; M79.7 Fibromyalgia; Z83.3 Family history of diabetes mellitus; Z88.1 Allergy status to other antibiotic agents; Z90.710 Acquired absence of both cervix and uterus; Z91.048 Other nonmedicinal substance allergy status; Z82.49 Family history of ischemic heart disease and other diseases of the circulatory system; Z88.8 Allergy status to other drugs, medicaments and biological substances
CPT/HCPCS: 36415; 70450; 71045; 80053; 81001; 83880; 84484; 85025; 93005; G0378

== ENCOUNTER → 2024-09-19 | Day surgery (SDC) | payer MEDICARE, OTHER ==
[2024-09-18 10:07] LABS: Urine Bacteria None Seen /hpf (None Seen)
[2024-09-18 11:14] LABS: Basophils # (auto) 0 10 ^3/uL (0-0.2); Basophils % (auto) 0.4 % (0.0-2.0); Eosinophils # (auto) 0.4 10 ^3/uL (0-0.8); Eosinophils % (auto) 5.9 % (0.0-7.0); Hematocrit 38.4 % (36.0-46.0); Hemoglobin 13.1 g/dL (12.2-16.2); Lymphocytes # (auto) 2.3 10 ^3/uL (0.4-5.4); Mean Corpuscular Hemoglobin 31.6 pg (28.0-32.0); Mean Corpuscular Hgb Conc. 34.2 g/dL (32.0-36.0); Mean Corpuscular Volume 92.4 fL (80.0-100.0); Monocytes # (auto) 0.6 10 ^3/uL (0-1.3); Neutrophils # (auto) 4.2 10 ^3/uL (1.6-8.6); Neutrophils % (auto) 55.7 % (37.0-80.0); Nucleated Red Blood Cells % 0.1 %; Platelet Count (auto) 333 10^3/uL (140-450); Red Blood Cells 4.16 10^6/uL (4.0-5.20); Red Cell Distribution Width 14.6 % (11.8-14.3); White Blood Cell 7.6 10^3/uL (4.4-10.8)
[2024-09-18 11:29] LABS: Urine Blood 1+ /uL (Negative); Urine Clarity Clear (Clear); Urine Color Light-Yellow (Yellow); Urine Mucus FEW (None Seen); Urine Protein, UAD Negative (Negative); Urine Specific Gravity 1.023 (1.001-1.035); Urine Squamous Epithelial Cell FEW /hpf (<5); Urine Urobilinogen Normal (Negative); Urine WBC 11 /HPF (0-5)
[2024-09-18 11:33] LABS: INR 0.93 (0.9-1.15); Prothrombin Time 9.9 sec (9.3-11.8)
[2024-09-18 11:43] LABS: Alanine Aminotransferase 17 U/L (7-40); Alkaline Phosphatase 91 U/L (46-116); Anion Gap 8 (5-15); Aspartate Aminotransferase 18 U/L (13-40); BUN/Creatinine Ratio 13.5 (10.0-20.0); Bilirubin, Total 0.7 mg/dL (0.2-1.0); Blood Urea Nitrogen 13 mg/dL (9-23); Carbon Dioxide 29 mmol/L (20-31); Chloride 103 mmol/L (98-107); Glucose 91 mg/dL (74-106); Potassium 4.1 mmol/L (3.5-5.1); Sodium 140 mmol/L (136-145); Total Protein 7.5 g/dL (5.7-8.2)
[2024-09-18 11:50] LABS: Albumin 4.9 g/dL (3.2-4.8); Calcium 10.9 mg/dL (8.7-10.4)
[~2024-09-19] VITALS: Ht 160 cm; Wt 109.8 kg
[~2024-09-19] MED LIST changes: -ATOR10TA52 PO; -DICY10CA PO; +DexAMETHasone SOD PHOS 10MG/1ML VIAL INJ ONE; -ESCI1TAB37 PO; -ESTR0.3T; -FLUT1AER17 IN; -GOLI100I SC; +LAMO100T44 PO; +LIDOCAINE VISCOUS 2% 15ML UD ONE; -LORA-622 PO; -LURA40TA2 PO; -METH4PAK PO; +MIDAZOLAM HCL 2MG/2ML 2ml VIAL (1mg/ml) ONE; +OXY10CRT PO; -PRAZ1CAP2 PO; +PROPOFOL 10 MG/ML 20 ML IV ONE; -RIZA5TAB OR; +USTE1INJ IV; -ZOLP10TA PO; -ZOLP5TAB5 PO; +fentaNYL CITRATE 100 MCG/2 ML VL ONE
[2024-09-19 14:20] VITALS: PULSE 72; RESP 15; O2SAT 98
[2024-09-19 15:00] VITALS: BP 136/66; PULSE 79; RESP 12; O2SAT 99
--- NOTE | 2024-09-19 15:07 | DVHOP2 ---
Operative Report DATE OF OPERATION: 09/19/24 PROCEDURE: Upper Endoscopy with biopsy. PREOPERATIVE INDICATION: The patient is a 39 -year-old female undergoing endoscopy for chronic GERD POSTOPERATIVE DIAGNOSES: 1. 1 cm sliding-type hiatal hernia with slightly irregular squamocolumnar junction 2. Mild antral gastritis with superficial antral gastric erosions and tiny ulcers PROCEDURE PERFORMED BY: Maxwell Calvo GI NURSE: Woo SCOPE: Olympus videoendoscope. ASA CLASS: 2. PREOPERATIVE MEDICATIONS: Mac Dr. Sb wright PROCEDURE IN DETAIL: After obtaining an informed consent, the patient was placed on left lateral decubitus position. The patient was then sedated with the above medications. A bite block was placed between her teeth. The endoscope was then passed through the oropharynx, into the esophagus, and through the stomach and pylorus up to the second and third part of the duodenum. The endoscope was then withdrawn. The 2nd and 3rd part of the duodenal and the duodenal bulb were normal. Duodenal biopsies were obtained The pre-pyloric area antrum and distal body showed mild gastritis with some pre- pyloric antral gastric erosions. On retroflexion the fundus cardia and angularis were normal. Gastric biopsies were obtained. The endoscope was then withdrawn into the distal esophagus where she had a 1 cm sliding-type hiatal hernia with slightly irregular squamocolumnar junction There was minimal grade a erosive esophagitis GE junction biopsies were obtained The remaining distal and proximal esophagus and oropharynx were unremarkable a The patient tolerated the procedure well without difficulty. COMPLICATIONS : None SPECIMENS: Duodenal biopsies Gastric biopsies GE junction biopsies DISPOSITION: Stable D/C to home PLAN: 1. Await for biopsy result 2. Will place pt on Protonix 20 mg p.o. daily or an equivalent PPI 3. DC aspirin NSAIDs smoking alcohol 4. Resume GI soft diet advance as tolerated 5. Outpatient follow up with me in 4-6 weeks to review results and discuss further management MAXWELL CALVO MD Sep 19, 2024 15:07
== END | disposition home or self-care (01) ==
LOC: GI 11:14
PROVIDERS: ATTEND Internal Medicine Gastroenterology
DX: K21.00 Gastro-esophageal reflux disease with esophagitis, without bleeding (principal); K29.50 Unspecified chronic gastritis without bleeding; K25.9 Gastric ulcer, unspecified as acute or chronic, without hemorrhage or perforation; K44.9 Diaphragmatic hernia without obstruction or gangrene; E66.01 Morbid (severe) obesity due to excess calories; F17.200 Nicotine dependence, unspecified, uncomplicated; J45.909 Unspecified asthma, uncomplicated; I25.2 Old myocardial infarction; I10 Essential (primary) hypertension; Z86.73 Personal history of transient ischemic attack (TIA), and cerebral infarction without residual deficits; Z98.890 Other specified postprocedural states; Z90.49 Acquired absence of other specified parts of digestive tract; Z90.710 Acquired absence of both cervix and uterus; Z98.1 Arthrodesis status; Z88.8 Allergy status to other drugs, medicaments and biological substances; Z68.44 Body mass index [BMI] 60.0-69.9, adult
CPT/HCPCS: 36415; 43239; 80053; 81001; 84702; 85025; 85610; 85730; 88305; 88312; 88342; J1100; J2250; J2704; J3010; J7030

== ENCOUNTER 2024-11-02 17:46 | Emergency (ER) | payer MEDICARE, OTHER ==
[~2024-11-02] VITALS: Ht 160 cm; Wt 108.0 kg
[~2024-11-02 17:46] MED LIST changes: -DexAMETHasone SOD PHOS 10MG/1ML VIAL INJ ONE; -LIDOCAINE VISCOUS 2% 15ML UD ONE; -MIDAZOLAM HCL 2MG/2ML 2ml VIAL (1mg/ml) ONE; -PROPOFOL 10 MG/ML 20 ML IV ONE; -fentaNYL CITRATE 100 MCG/2 ML VL ONE
--- NOTE | 2024-11-02 18:35 | ED.PDOC ---
Back pain HPI HPI Comments 39-year-old female presents to ER with complaints of fall injury x1 day. Patient reports that she fell and landed on her back onto hard dirt while getting out of her truck at 11 p.m. last night and has since been experiencing 7/10 right wrist pain, mid back pain, tailbone pain, left hip pain and left knee pain post fall. Unsure on exact height of fall, denying head injury/LOC. States that she is prescribed Gilman 10/325 mg along with morphine for chronic pain that she has taken with some relief. Patient presents to ER ambulatory on arrival, with steady gait, in mild distress. Denies shortness of breath, chest pain, neck pain, headache, numbness/tingling, nausea/vomiting, abdominal/pelvic pain, changes in urination/BM or any further symptoms/complaints Chief Complaint: Body Pain Time Seen by MD: 18:06 Primary Care Provider: ANA Reviewed Notes: Nurses Notes, Medications, Allergies Allergies: Coded Allergies: Doxycycline (Verified Allergy, Intermediate, 09/02/24) Nabumetone (Verified Allergy, Intermediate, 09/02/24) Uncoded Allergies: Adhesive tape (Allergy, Severe, Skin peels, blisters, 11/12/23) Home Meds Active Scripts Mesalamine (Lialda) 1.2 Gm Tab, 1.2 GM PO BID, #60 TAB Prov:TOMEKA SHAH MD 07/06/23 Albuterol Sulfate (Albuterol Sulfate Hfa) 108 Mcg/Act Aer, 108 MCG IN Q4HP PRN, #1 AER 1 Refill Prov:SHEELA MORFIN PAC 02/07/23 Reported Medications Lamotrigine (Lamotrigine) 100 Mg Tab, 100 MG PO DAILY, TAB 09/18/24 Ustekinumab (IV) (Stelara) 130 Mg/26 Ml Inj, 90 MG IV [id number], INJ 09/18/24 Oxycodone Hcl (OxyCONTIN ER Tablet) 10 Mg Tb, 1 TAB PO BID, #60 TAB 09/02/24 Ipratropium [place] (Ipratropium [place]) 0.03 % Spr, 0.03 % NA QID, SPRAY 11/12/23 Gabapentin (Gabapentin) 100 Mg Cap, 100 MG PO TID, CAP 11/12/23 Amlodipine Besylate (Amlodipine Besylate) 5 Mg Tab, 5 MG PO DAILY, TAB 11/12/23 Oxycodone W/ Acetaminophen (Oxycodone/Acetaminophen 10-300 mg) 1 Tab Tab, 1 TAB PO Q4HR, TAB 11/12/23 Methotrexate (Methotrexate) 2.5 Mg Tab, 4 TAB PO QWEEKLY, #16 TAB 1 Refill 07/06/23 Propranolol HCl (Propranolol Hydrochloride) 20 Mg Tab, 1 TAB PO BID 07/05/23 Chlorthalidone (Chlorthalidone) 25 Mg Tab, 1 TAB PO DAILY 07/05/23 Folic Acid (Folic Acid) 1 Mg Tab, 1 TAB PO DAILY 07/05/23 Information Source: Patient Mode of Arrival: Ambulatory Past Medical History PAST MEDICAL HISTORY: Asthma, CVA, High Lipids, HTN, TN Surgical History: Cholecystectomy, , Hysterectomy, PTCA Surgical History (Other): Lumbar spinal fusion Spinal stimulator Cervical spine surgery Left foot surgery [employer]LING [employer]ALL FINISHER History: No Pertinent B[employer]LING [employer]ALL FINISHER History Family History Family History: Family hx of DM, Family hx of Cancer, Family hx of heart steven Social History Smoker: Non-Smoker Alcohol: Denies ETOH Use Drugs: Denies Drug Use Lives In: Home Constitutional: denies: chills, diaphoresis, fatigue, fever, malaise, sweats, weakness, others EENTM: denies: blurred vision, double vision, ear bleeding, ear discharge, ear drainage, ear pain, ear ringing, eye pain, eye redness, hearing loss, mouth pain, mouth swelling, nasal discharge, nose bleeding, nose congestion, nose pain, photophobia, tearing, throat pain, throat swelling, voice changes, others Respiratory: denies: cough, hemoptysis, orthopnea, SOB at rest, shortness of breath, SOB with excertion, stridor, wheezing, others Cardiovascular: denies: chest pain, dizzy spells, diaphoresis, Dyspnea on exertion, edema, irregular heart beat, left arm pain, lightheadedness, palpitations, PND, syncope, others Gastrointestinal: denies: abdomen distended, abdominal pain, blood streaked bowels, constipated, diarrhea, dysphagia, difficulty swallowing, hematemesis, melena, nausea, poor appetite, poor fluid intake, rectal bleeding, rectal pain, vomiting, others Genitourinary: denies: abnormal vagina bleeding, burning, dyspareunia, dysuria, flank pain, frequency, hematuria, incontinence, pain, , vagina discharge, urgency, others Neurological: denies: dizziness, fainting, headache, left sided numbness, left sided weakness, numbness, paresthesia, pre-existing deficit, right sided numbness, right sided weakness, seizure, speech problems, tingling, tremors, weakness, others Musculoskeletal: reports: others (As stated in HPI) Integumetry: denies: bruises, change in color, change in hair/nails, dryness, laceration, lesions, lumps, rash, wounds, others Allergic/Immunocompromised: denies: Difficulty Healing, Frequent Infections, Hives, Itching, others Hematologic/Lymphatic: denies: anemia, blood clots, easy bleeding, easy bruising, swollen glands, others Endocrine: denies: excessive hunger, excessive sweating, excessive thirst, excessive urination, flushing, intolerance to cold, intolerance to heat, unexplained weight gain, unexplained weight loss, others Psychiatric: denies: anxiety, bipolar disorder, depression, hopeless, panic disorder, schizophrenia, sleepless, suicidal, others Physical Exam General Appearance: Mild Distress, Obese HEENT: PERRL/EOMI Neck: Full Range of Motion, Non-Tender, Normal Respiratory: Chest Non-Tender, Lungs Clear, No Accessory Muscle Use, No Respiratory Distress, Normal Breath Sounds Cardiovascular: No Murmur, No Gallop, Regular Rate/Rhythm Breast Exam: Deferred Gastrointestinal: NOT DONE Genitalia: Deferred Pelvic: Deferred Rectal: Deferred Extremities: Normal capillary refill, Normal range of motion Musculoskeletal : Extremity Location: Back (TTP to mid thoracolumbar spine along with coccyx noted. Scar noted from previous lumbar spinal surgery. Slowed gait appreciated), Hip (TTP to left hip noted. No internal rotation/shortening to bilateral legs noted.), Knee (TTP/mild swelling noted to left anterior knee. Positive anterior drawer test left knee. Negative Shyann's test left knee. No deformities noted. Patient able to fully move the left knee. Pulses intact), Wrist (TTP/mild to radial aspect of right wrist noted. No TTP to right anatomical snuffbox noted. Pulses intact) Neurologic: Alert, parish worker II-XII nml as Tested, No Motor Deficits, No Sensory Deficits Cerebellar Function: Normal Reflexes: Normal Skin: Dry, Normal Color, Warm Peripheral Pulses: 2+ femoral (R), 2+ femoral (L), 2+ dorsalis pedis (R), 2+ dorsalis pedis (L), 2+ Radial (R), 2+ Radial (L), 2+ Brachial (R), 2+ Brachial (L) Lymphatic: No Adenopathy Was a procedure done? Was a procedure done?: No Sedation Sedation?: No Back Pain Differential Dx Differential Diagnosis: Fracture, Other (Dislocation, neurovascular injury, laceration) X-Ray, Labs, Meds, VS Vital Signs Date Time Temp Pulse Resp B/P (MAP) Pulse Ox O2 Delivery O2 Flow Rate FiO2 11/02/24 17:57 97.9 91 16 126/71 (89) 100 97.9 All x-ray imaging reports reviewed Patient neurovascularly intact and had improvement in symptoms prior to discharge Advised on res/ no strenuous activity, elevation and alternate ice on/off as needed for pain/swelling Advised to continue current pain medications as prescribed Advised to follow up with PCP and orthopedics in 1-2 days Patient verbalized understanding and agreeable with current plan of care Advised to return to ER immediately if symptoms worsen Images Reviewed?: Images reviewed and evaluated by me (ACUTE FRACTURES/DISLOCATION) Time of 1ST Reevaluation: 18:34 Reevaluation 1ST: N/A Patient Education/Counseling: Diagnosis, Treatment, Prognosis, Need For Follow Up Family Education/Counseling: Diagnosis, Treatment, Prognosis, Need For Follow Up Departure 1 Departure Time of Disposition: 19:24 Impression: Primary Impression: Coccyx contusion Qualified Codes: S30.0XXA - Contusion of lower back and pelvis, initial encounter Additional Impressions: Contusion of mid back Qualified Codes: S20.229A - Contusion of unspecified back wall of thorax, initial encounter Sprain of wrist, right Qualified Codes: S63.501A - Unspecified sprain of right wrist, initial enc ounter Left knee sprain Qualified Codes: S83.92XA - Sprain of unspecified site of left knee, initial encounter Contusion of hip, left Qualified Codes: S70.02XA - Contusion of left hip, initial encounter Disposition: HOME / SELF CARE / HOMELESS Condition: Stable Discharged With: Other (daughter) Critical Care Note Critical Care Time?: No Stability Stability form required: No Heart Score Heart Score: Heart Score Response (Comments) Value History N/A 0 EKG N/A 0 Age N/A 0 Risk Factors N/A 0 Troponin N/A 0 Total 0 LOUISE RIZVI Nov 02, 2024 18:35
--- NOTE | 2024-11-02 19:14 | DVH ---
INDICATION: coccyx pain, hx lumbar fusion and spinal stimulator TECHNIQUE: 3 views of the sacrum and coccyx were obtained. COMPARISON: CT 07/04/2023 FINDINGS: There are no acute fractures or subluxations. Lumbosacral hardware again noted. IMPRESSION: 1. No acute fracture or subluxation.
--- NOTE | 2024-11-02 19:14 | DVH ---
CLINICAL INDICATION: thoraco lumbar back pain TECHNIQUE: 3 radiographic views of the thoracolumbar spine were obtained. Comparison: None FINDINGS/IMPRESSION: There is no evidence of acute fracture or dislocation. Postop changes noted at L5-S1 with intervertebral disc spacer in place The visualized joint space is well maintained. The alignment is anatomical. There is no radiopaque foreign body.
--- NOTE | 2024-11-02 19:15 | DVH ---
CLINICAL INDICATION: left knee pain TECHNIQUE: XY L KNEE 3V XRAY Comparison: None FINDINGS/IMPRESSION: There is no evidence of acute fracture or dislocation. Soft tissues are unremarkable.
--- NOTE | 2024-11-02 19:17 | DVH ---
CLINICAL INDICATION: right wrist pain TECHNIQUE: XY R WRIST 3+ VIEW XRAY Comparison: None FINDINGS/IMPRESSION: There is no evidence of acute fracture or dislocation. Soft tissues are unremarkable.
--- NOTE | 2024-11-02 19:20 | DVH ---
CLINICAL INDICATION: left hip pain TECHNIQUE: Frontal view of the pelvis and 2 views of the left hip Comparison: CT 07/04/2023 FINDINGS/IMPRESSION: There is no evidence of acute fracture or dislocation. No significant degenerative changes of the lef t hip. Lumbosacral hardware again noted. Partial visualization of spinal stimulator. Soft tissues are unremarkable.
[2024-11-02 19:26] VITALS: BP 126/71; PULSE 91; RESP 16; TEMP 97.9; O2SAT 100
== END 2024-11-02 20:00 | disposition home or self-care (01) ==
LOC: ER 17:46
DX: S30.0XXA Contusion of lower back and pelvis, initial encounter (principal); S20.224A Contusion of middle back wall of thorax, initial encounter; S63.501A Unspecified sprain of right wrist, initial encounter; S70.02XA Contusion of left hip, initial encounter; S83.92XA Sprain of unspecified site of left knee, initial encounter; J45.909 Unspecified asthma, uncomplicated; I10 Essential (primary) hypertension; I25.2 Old myocardial infarction; Z90.49 Acquired absence of other specified parts of digestive tract; Z90.710 Acquired absence of both cervix and uterus; Z79.899 Other long term (current) drug therapy; Z88.1 Allergy status to other antibiotic agents; W19.XXXA Unspecified fall, initial encounter; Y93.89 Activity, other specified; Y92.89 Other specified places as the place of occurrence of the external cause; Y99.8 Other external cause status
CPT/HCPCS: 29505; 72080; 72220; 73110; 73502; 73562

== ENCOUNTER 2025-01-23 14:02 | Emergency (ER) | payer MEDICARE, OTHER ==
[~2025-01-23] VITALS: Ht 157.5 cm; Wt 103.9 kg
--- NOTE | 2025-01-23 14:22 | ED.PDOC ---
History of Present Illness HPI Comments 39-year-old female presents with a chief complaint of itchiness to the top of her feet and the palms of her hands. Patient reports that she attempted to get an appointment with her primary care provider but was unable to. Patient states that the itchiness has not subsided or been relieved. Time Seen by : 14:12 Primary Care Provider: ANA Oneal Notes: Medications, Allergies Allergies: Coded Allergies: Doxycycline (Verified Allergy, Intermediate, 09/02/24) Nabumetone (Verified Allergy, Intermediate, 09/02/24) Uncoded Allergies: Adhesive tape (Allergy, Severe, Skin peels, blisters, 11/12/23) Home Meds Active Scripts Mesalamine (Lialda) 1.2 Gm Tab, 1.2 GM PO BID, #60 TAB Prov:TOMEKA SHAH MD 07/06/23 Albuterol Sulfate (Albuterol Sulfate Hfa) 108 Mcg/Act Aer, 108 MCG IN Q4HP PRN, #1 AER 1 Refill Prov:SHEELA MORFIN PAC 02/07/23 Reported Medications Lamotrigine (Lamotrigine) 100 Mg Tab, 100 MG PO DAILY, TAB 09/18/24 Ustekinumab (IV) (Stelara) 130 Mg/26 Ml Inj, 90 MG IV [id number], INJ 09/18/24 Oxycodone Hcl (OxyCONTIN ER Tablet) 10 Mg Tb, 1 TAB PO BID, #60 TAB 09/02/24 Ipratropium [place] (Ipratropium [place]) 0.03 % Spr, 0.03 % NA QID, SPRAY 11/12/23 Gabapentin (Gabapentin) 100 Mg Cap, 100 MG PO TID, CAP 11/12/23 Amlodipine Besylate (Amlodipine Besylate) 5 Mg Tab, 5 MG PO DAILY, TAB 11/12/23 Oxycodone W/ Acetaminophen (Oxycodone/Acetaminophen 10-300 mg) 1 Tab Tab, 1 TAB PO Q4HR, TAB 11/12/23 Methotrexate (Methotrexate) 2.5 Mg Tab, 4 TAB PO QWEEKLY, #16 TAB 1 Refill 07/06/23 Propranolol HCl (Propranolol Hydrochloride) 20 Mg Tab, 1 TAB PO BID 07/05/23 Chlorthalidone (Chlorthalidone) 25 Mg Tab, 1 TAB PO DAILY 07/05/23 Folic Acid (Folic Acid) 1 Mg Tab, 1 TAB PO DAILY 07/05/23 Information Source: Patient Mode of Arrival: Ambulatory Severity: Moderate Timing: Days Duration: Since onset Prehospital treatment: None Past Medical History PAST MEDICAL HISTORY: Asthma, CVA, High Lipids, HTN, [place] Surgical History: Cholecystectomy, , Hysterectomy, 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 Family History Family History: Family hx of DM, Family hx of Cancer, Family hx of heart steven Social History Smoker: Non-Smoker Alcohol: Denies ETOH Use Drugs: Denies Drug Use Lives In: Home Constitutional: denies: chills, diaphoresis, fatigue, fever, malaise, sweats, weakness, others EENTM: denies: blurred vision, double vision, ear bleeding, ear discharge, ear drainage, ear pain, ear ringing, eye pain, eye redness, hearing loss, mouth pain , mouth swelling, nasal discharge, nose bleeding, nose congestion, nose pain, photophobia, tearing, throat pain, throat swelling, voice changes, others Respiratory: denies: cough, hemoptysis, orthopnea, SOB at rest, shortness of breath, SOB with excertion, stridor, wheezing, others Cardiovascular: denies: chest pain, dizzy spells, diaphoresis, Dyspnea on exertion, edema, irregular heart beat, left arm pain, lightheadedness, palpitations, PND, syncope, others Gastrointestinal: denies: abdomen distended, abdominal pain, blood streaked bowels, constipated, diarrhea, dysphagia, difficulty swallowing, hematemesis, melena, nausea, poor appetite, poor fluid intake, rectal bleeding, rectal pain, vomiting, others Genitourinary: denies: abnormal vagina bleeding, burning, dyspareunia, dysuria, flank pain, frequency, hematuria, incontinence, pain, , vagina discharge, urgency, others Neurological: denies: dizziness, fainting, headache, left sided numbness, left sided weakness, numbness, paresthesia, pre-existing deficit, right sided numbness, right sided weakness, seizure, speech problems, tingling, tremors, weakness, others Musculoskeletal: denies: back pain, gout, joint pain, joint swelling, muscle pain, muscle stiffness, neck pain, others Integumetry: denies: bruises, change in color, change in hair/nails, dryness, laceration, lesions, lumps, rash, wounds, others Allergic/Immunocompromised: reports: Itching; denies: Difficulty Healing, Frequent Infections, Hives, others Hematologic/Lymphatic: denies: anemia, blood clots, easy bleeding, easy bruising, swollen glands, others Endocrine: denies: excessive hunger, excessive sweating, excessive thirst, excessive urination, flushing, intolerance to cold, intolerance to heat, unexplained weight gain, unexplained weight loss, others Psychiatric: denies: anxiety, bipolar disorder, depression, hopeless, panic disorder, schizophrenia, sleepless, suicidal, others All Other Systems: Reviewed and Negative Physical Exam General Appearance: No Apparent Distress, Normal HEENT: Normal ENT Inspection, Pharynx Normal, TMs Normal Neck: Full Range of Motion, Non-Tender, Normal, Normal Inspection Respiratory: Chest Non-Tender, Lungs Clear, No Accessory Muscle Use, No Respiratory Distress, Normal Breath Sounds Cardiovascular: No Edema, No JVD, No Murmur, No Gallop, Normal Peripheral Pulses, Regular Rate/Rhythm Breast Exam: Deferred Gastrointestinal: No Organomegaly, Non Tender, No Pulsatile Mass, Normal Bowel Sounds, Soft Genitalia: Deferred Pelvic: Deferred Rectal: Deferred Extremities: No calf tenderness, Normal capillary refill, Normal inspection, Normal range of motion, Non-tender, No pedal edema Musculoskeletal : Apperance: Normal Neurologic: Alert, nanotechnician II-XII nml as Tested, No Motor Deficits, Normal Affect, Normal Mood, No Sensory Deficits Cerebellar Function: Normal Reflexes: Normal Skin: Dry, Normal Color, Warm Lymphatic: No Adenopathy Was a procedure done? Was a procedure done?: No Differential Dx Considerations may include: anhydrous eczema, parasitosis, anxiety, hyperbilirubinemia, PV X-Ray, Labs, Meds, VS Vital Signs Date Time Temp Pulse Resp B/P (MAP) Pulse Ox O2 Delivery O2 Flow Rate FiO2 01/23/25 14:38 98.2 79 18 115/80 (92) 98 98.2 Lab Test 01/23/25 14:40 Range/Units Sodium Level 141 136-145 mmol/L Potassium Level 3.9 3.5-5.1 mmol/L Chloride Level 108 H 98-107 mmol/L Carbon Dioxide Level 23 20-31 mmol/L Anion Gap 10 5-15 Blood Urea Nitrogen 11 9-23 mg/dL Creatinine 1.20 H 0.550-1.02 mg/dL Glomerular Filtration Rate Calc 59 >90 mL/min BUN/Creatinine Ratio 9.2 L 10.0-20.0 Serum Glucose 82 74-106 mg/dL Calcium Level 9.5 8.7-10.4 mg/dL Total Bilirubin 0.6 0.2-1.0 mg/dL Aspartate Amino Transferase (AST) 18 <34 U/L Alanine Aminotransferase (ALT) 15 7-40 U/L Alkaline Phosphatase 113 46-116 U/L Total Protein 7.5 5.7-8.2 g/dL Albumin 4.7 3.2-4.8 g/dL Time of 1ST Reevaluation: 14:42 Reevaluation 1ST: Unchanged Time of 2ND Reevaluation: 15:21 Reevaluation 2ND: Resolved Patient Education/Counseling: Diagnosis, Treatment, Prognosis, Need For Follow Up Family Education/Counseling: Diagnosis, Treatment, Prognosis, Need For Follow Up Departure 1 Departure Time of Disposition: 15:21 Impression: Primary Impression: Pruritic condition Disposition: 01 HOME / SELF CARE / HOMELESS Condition: Good e-Prescriptions Hydralazine Hcl (Hydralazine Hcl) 50 Mg Tab 1 TAB PO TID, #90 TAB 5 Refills Prov: HUMZA SHUKLA MD 01/23/25 Discharged With: Self Critical Care Note Critical Care Time?: No Stability Stability form required: No Heart Score Heart Score: Heart Score Response (Comments) Value History N/A 0 EKG N/A 0 Age N/A 0 Risk Factors N/A 0 Troponin N/A 0 Total 0 I personally scribed for HUMZA SHUKLA MD ([email or web address]) on 01/23/25 at 14:22. Electronically submitted by Paul Newsome ([email or web address]). HUMZA SHUKLA MD Jan 23, 2025 14:22
[2025-01-23 15:12] LABS: Alanine Aminotransferase 15 U/L (7-40); Albumin 4.7 g/dL (3.2-4.8); Alkaline Phosphatase 113 U/L (46-116); Anion Gap 10 (5-15); Aspartate Aminotransferase 18 U/L (<34); BUN/Creatinine Ratio 9.2 (10.0-20.0); Bilirubin, Total 0.6 mg/dL (0.2-1.0); Blood Urea Nitrogen 11 mg/dL (9-23); Calcium 9.5 mg/dL (8.7-10.4); Carbon Dioxide 23 mmol/L (20-31); Glucose 82 mg/dL (74-106); Potassium 3.9 mmol/L (3.5-5.1); Sodium 141 mmol/L (136-145); Total Protein 7.5 g/dL (5.7-8.2)
[2025-01-23 15:13] LABS: Chloride 108 mmol/L (98-107)
[2025-01-23] MEDS ORDERED: HYDR50TA47 PO (15:22)
[2025-01-23 15:47] VITALS: BP 123/59; PULSE 78; RESP 16; TEMP 98.7; O2SAT 98
[2025-01-23] MEDS: hydrALAZINE HCL 25 MG TAB PO ONE (15:53)
== END 2025-01-23 15:54 | disposition home or self-care (01) ==
LOC: ER 14:02
DX: L29.9 Pruritus, unspecified (principal); I10 Essential (primary) hypertension; E78.5 Hyperlipidemia, unspecified; J45.909 Unspecified asthma, uncomplicated; Z79.899 Other long term (current) drug therapy; Z86.73 Personal history of transient ischemic attack (TIA), and cerebral infarction without residual deficits; Z90.49 Acquired absence of other specified parts of digestive tract; Z90.710 Acquired absence of both cervix and uterus; Z98.890 Other specified postprocedural states; Z88.1 Allergy status to other antibiotic agents
CPT/HCPCS: 36415; 80053

== ENCOUNTER 2025-06-09 13:31 | Emergency (ER) | payer MEDICARE, OTHER ==
[~2025-06-09] VITALS: Ht 160 cm; Wt 104.8 kg
[~2025-06-09 13:31] MED LIST changes: +HYDR50TA47 PO
[2025-06-09 13:34] VITALS: BP 161/92; PULSE 103; RESP 20; TEMP 98.1; O2SAT 97
--- NOTE | 2025-06-09 14:52 | ED.PDOC ---
History of Present Illness HPI Comments 40-year-old female presents to the ER with no prior medical history associated with a chief complaint of allergic reaction. Patient reports on eating lunch 1 hour ago when she started to have throat swelling 20 minutes after. In states on taking three Benadryl pills for which moderately subsided the sore throat. Patient notes on eating new food. Denies any other symptoms at this time. Denies chills, fever, N/V/D, SOB, CP. No other associated symptoms, modifiers, recent injuries or sick contacts present at this time. Chief Complaint: Allergic Reaction Time Seen by MD: 14:50 Primary Care Provider: ANA Reviewed Notes: Nurses Notes, Medications, Allergies Allergies: Coded Allergies: Doxycycline (Verified Allergy, Intermediate, 09/02/24) Nabumetone (Verified Allergy, Intermediate, 09/02/24) Uncoded Allergies: Adhesive tape (Allergy, Severe, Skin peels, blisters, 11/12/23) Home Meds Active Scripts Hydralazine Hcl (Hydralazine Hcl) 50 Mg Tab, 1 TAB PO TID, #90 TAB 5 Refills Prov:HUMZA SHUKLA MD 01/23/25 Mesalamine (Lialda) 1.2 Gm Tab, 1.2 GM PO BID, #60 TAB Prov:TOMEKA SHAH MD 07/06/23 Albuterol Sulfate (Albuterol Sulfate Hfa) 108 Mcg/Act Aer, 108 MCG IN Q4HP PRN, #1 AER 1 Refill Prov:SHEELA MORFIN PAC 02/07/23 Reported Medications Lamotrigine (Lamotrigine) 100 Mg Tab, 100 MG PO DAILY, TAB 09/18/24 Ustekinumab (IV) (Stelara) 130 Mg/26 Ml Inj, 90 MG IV [id number], INJ 09/18/24 Oxycodone Hcl (OxyCONTIN ER Tablet) 10 Mg Tb, 1 TAB PO BID, #60 TAB 09/02/24 Ipratropium [place] (Ipratropium [place]) 0.03 % Spr, 0.03 % NA QID, SPRAY 11/12/23 Gabapentin (Gabapentin) 100 Mg Cap, 100 MG PO TID, CAP 11/12/23 Amlodipine Besylate (Amlodipine Besylate) 5 Mg Tab, 5 MG PO DAILY, TAB 11/12/23 Oxycodone W/ Acetaminophen (Oxycodone/Acetaminophen 10-300 mg) 1 Tab Tab, 1 TAB PO Q4HR, TAB 4 Methotrexate (Methotrexate) 2.5 Mg Tab, 4 TAB PO QWEEKLY, #16 TAB 1 Refill 07/06/23 Propranolol HCl (Propranolol Hydrochloride) 20 Mg Tab, 1 TAB PO BID 07/05/23 Chlorthalidone (Chlorthalidone) 25 Mg Tab, 1 TAB PO DAILY 07/05/23 Folic Acid (Folic Acid) 1 Mg Tab, 1 TAB PO DAILY 07/05/23 Information Source: Patient Mode of Arrival: Ambulatory Severity: Moderate Timing: Minutes Duration: Since onset, Minutes Prehospital treatment: None Past Medical History PAST MEDICAL HISTORY: Asthma, CVA, High Lipids, HTN, [place] Surgical History: Cholecystectomy, , Hysterectomy, 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 Family History Family History: Reviewed,noncontributory to illness, Unknown Social History Smoker: Non-Smoker Alcohol: Denies ETOH Use Drugs: Denies Drug Use Lives In: Home Constitutional: denies: chills, diaphoresis, fatigue, fever, malaise, sweats, weakness, others EENTM: reports: throat swelling; denies: blurred vision, double vision, ear bleeding, ear discharge, ear drainage, ear pain, ear ringing, eye pain, eye redness, hearing loss, mouth pain, mouth swelling, nasal discharge, nose bleeding, nose congestion, nose pain, photophobia, tearing, throat pain, voice changes, others Respiratory: denies: cough, hemoptysis, orthopnea, SOB at rest, shortness of breath, SOB with excertion, stridor, wheezing, others Cardiovascular: denies: chest pain, dizzy spells, diaphoresis, Dyspnea on exertion, edema, irregular heart beat, left arm pain, lightheadedness, palpitations, PND, syncope, others Gastrointestinal: denies: abdomen distended, abdominal pain, blood streaked bowels, constipated, diarrhea, dysphagia, difficulty swallowing, hematemesis, melena, nausea, poor appetite, poor fluid intake, rectal bleeding, rectal pain, vomiting, others Genitourinary: denies: abnormal vagina bleeding, burning, dyspareunia, dysuria, flank pain, frequency, hematuria, incontinence, pain, , vagina discharge, urgency, others Neurological: denies: dizziness, fainting, headache, left sided numbness, left sided weakness, numbness, paresthesia, pre-existing deficit, right sided numbness, right sided weakness, seizure, speech problems, tingling, tremors, weakness, others Musculoskeletal: denies: back pain, gout, joint pain, joint swelling, muscle pain, muscle stiffness, neck pain, others Integumetry: denies: bruises, change in color, change in hair/nails, dryness, laceration, lesions, lumps, rash, wounds, others Allergic/Immunocompromised: denies: Difficulty Healing, Frequent Infections, Hives, Itching, others Hematologic/Lymphatic: denies: anemia, blood clots, easy bleeding, easy bruising, swollen glands, others Endocrine: denies: excessive hunger, excessive sweating, excessive thirst, excessive urination, flushing, intolerance to cold, intolerance to heat, unexplained weight gain, unexplained weight loss, others Psychiatric: denies: anxiety, bipolar disorder, depression, hopeless, panic disorder, schizophrenia, sleepless, suicidal, others All Other Systems: Reviewed and Negative Physical Exam General Appearance: Moderate Distress, Normal HEENT: Normal ENT Inspection, Pharynx Normal, TMs Normal Neck: Full Range of Motion, Non-Tender, Normal, Normal Inspection Respiratory: Chest Non-Tender, Lungs Clear, No Accessory Muscle Use, No Respiratory Distress, Normal Breath Sounds Cardiovascular: No Edema, No JVD, No Murmur, No Gallop, Normal Peripheral Pulses, Regular Rate/Rhythm Breast Exam: Deferred Gastrointestinal: No Organomegaly, Non Tender, No Pulsatile Mass, Normal Bowel Sounds, Soft Genitalia: Deferred Pelvic: Deferred Rectal: Deferred Extremities: No calf tenderness, Normal capillary refill, Normal inspection, Normal range of motion, Non-tender, No pedal edema Musculoskeletal : Apperance: Normal Neurologic: Alert, dock boss II-XII nml as Tested, No Motor Deficits, Normal Affect, Normal Mood, No Sensory Deficits Cerebellar Function: NOT DONE Reflexes: NOT DONE Skin: Dry, Normal Color, Warm Peripheral Pulses: 3+ Radial (R), 3+ Radial (L) Lymphatic: No Adenopathy Was a procedure done? Was a procedure done?: No Differential Dx Considerations may include: Allergic reaction X-Ray, Labs, Meds, VS Vital Signs Date Time Temp Pulse Resp B/P (MAP) Pulse Ox O2 Delivery O2 Flow Rate FiO2 06/09/25 13:34 98.1 103 20 161/92 97 98.1 Patient alert. Possible allergic reaction. No sign of distress. Saturation pristine on room air. No tongue swelling. Good air entry. Comfortable. Was given prescription of prednisone. Explained to the patient. Was told to follow up with her primary care physician. Was told to come back if there is any problem. Time of 1ST Reevaluation: 15:20 Reevaluation 1ST: Improved Patient Education/Counseling: Diagnosis, Treatment, Prognosis Family Education/Counseling: No Family Present SEPSIS Sepsis Screen Date sepsis recognized/suspect: Jun 09, 2025 Time Sepsis recognized/suspect: 1334 Recent Procedure: No On Antibiotic Therapy: No Respiratory Rate >20: No Heart Rate >90: Yes Temp<36 C (96.8 F) or >38.3 C: No SBP <90 or MAP <65 mmHG: No New Acute Mental Status Change: No Is the patient on CPAP, BIPAP,: No Vital Signs Date Time Temp Pulse Resp B/P (MAP) Pulse Ox O2 Delivery O2 Flow Rate FiO2 06/09/25 13:34 98.1 103 20 161/92 97 98.1 Departure 1 Departure Time of Disposition: 16:35 Impression: Primary Impression: Allergic reaction Qualified Codes: T78.40XA - Allergy, unspecified, initial encounter Disposition: HOME / SELF CARE / HOMELESS Condition: Good Discharged With: Self Critical Care Note Critical Care Time?: No Stability Stability form required: No Heart Score Heart Score: Heart Score Response (Comments) Value History N/A 0 EKG N/A 0 Age N/A 0 Risk Factors N/A 0 Troponin N/A 0 Total 0 I personally scribed for LORI WATTERS MD ([email or web address]) on 06/09/25 at 14:52. Electronically submitted by Jose Ordonez ([email or web address]). LORI WATTERS MD Jun 09, 2025 14:52
[2025-06-09] MEDS ORDERED: methylPREDNISolone SOD SUCC 125 MG/2 ML VL IM ONE (15:15)
== END 2025-06-09 16:09 | disposition home or self-care (01) ==
LOC: ER 13:31
DX: R22.9 Localized swelling, mass and lump, unspecified (principal); T78.40XA Allergy, unspecified, initial encounter; Z88.1 Allergy status to other antibiotic agents; Z90.49 Acquired absence of other specified parts of digestive tract; Z90.710 Acquired absence of both cervix and uterus; Z79.899 Other long term (current) drug therapy; Z86.73 Personal history of transient ischemic attack (TIA), and cerebral infarction without residual deficits; X58.XXXA Exposure to other specified factors, initial encounter

== ENCOUNTER 2025-06-29 01:17 | Emergency (ER) | payer MEDICARE, OTHER ==
[~2025-06-29] VITALS: Ht 160 cm; Wt 101.2 kg
--- NOTE | 2025-06-29 01:44 | ED.PDOC ---
History of Present Illness HPI Comments 40-year-old female who came to ER for left-sided weakness. Patient does have history of hypertension and TIA. States 1 hour prior to arrival, he started having headaches, dizziness, shortness of breath progressively worsening to left sided weakness and facial asymmetry. Blood pressure upon arrival was 181/90 mmHg. Patient states she was feeling at her baseline at 10:30 p.m. when she went to sleep. She awoke from sleep with her symptoms. REVIEW OF SYSTEMS: General: No fever, no chills, or fatigue HEENT: No sore throat, no earache, no congestion, no neck pain. Cardiac: No chest pain. No palpitations. Lungs: No shortness of breath, no cough. GI: No nausea, no vomiting, no diarrhea, no constipation, no abdominal pain : No dysuria, frequency, or urgency. No hematuria. Musculoskeletal: No joint pain , no joint swelling, no extremity edema. Skin: No rash, no itching. Neuro: (+) headache, (+) dizziness, (+) left sided weakness EXAM: General: Awake, alert and oriented. No acute distress. Skin: Skin in warm, dry and intact. Appropriate color for ethnicity. HEENT: The head is normocephalic and atraumatic. Conjunctivae are clear without exudates or hemorrhage. Sclera is non-icteric. EOM are intact. No signs of nystagmus. Eyelids are normal in appearance without swelling or lesions. Oral mucosa is pink and moist Neck: The neck is supple with normal range of motion. No JVD. Cardiac: Heart rate and rhythm are normal. No murmurs, gallops, or rubs are auscultated. Respiratory: No signs of respiratory distress. Lung sounds are clear in all lobes bilaterally without rales, rhonchi, or wheezes. Abdominal: Abdomen is soft, non-tender without distention. Bowel sounds are present and normoactive in all four quadrants. Extremities: Upper and lower extremities are atraumatic in appearance without deformity or edema. Neurological: The patient is awake, alert and oriented to person, place, and time with normal speech. Speech is clear. Psychiatric: Appropriate mood and affect. Good judgement and insight NIH Stroke Scale/Score (NIHSS) RESULT SUMMARY: 5 points NIH Stroke Scale 1A: Level of consciousness > 0 = Alert; keenly responsive 1B: Ask month and age > 0 = Both questions right 1C: 'Blink eyes' & 'squeeze hands' > 0 = Performs both tasks 2: Horizontal extraocular movements > 0 = Normal 3: Visual tellez > 0 = No visual loss 4: Facial palsy > 1 = Minor paralysis (flat nasolabial fold, smile asymmetry) 5A: Left arm motor drift > 1 = Drift, but doesn't hit bed 5B: Right arm motor drift > 0 = No drift for 10 seconds 6A: Left leg motor drift > 1 = Drift, but doesn't hit bed 6B: Right leg motor drift > 0 = No drift for 5 seconds 7: Limb Ataxia > 0 = No ataxia 8: Sensation > 2 = Complete loss: cannot sense being touched at all 9: Language/aphasia > 0 = Normal; no aphasia 10: Dysarthria > 0 = Normal 11: Extinction/inattention > 0 = No abnormality Chief Complaint: Left Sided Weakness Time Seen by MD: 01:43 Primary Care Provider: ANA Oneal Notes: Nurses Notes Allergies: Coded Allergies: Doxycycline (Verified Allergy, Intermediate, 09/02/24) Nabumetone (Verified Allergy, Intermediate, 09/02/24) Uncoded Allergies: Adhesive tape (Allergy, Severe, Skin peels, blisters, 11/12/23) Home Meds Active Scripts Hydralazine Hcl (Hydralazine Hcl) 50 Mg Tab, 1 TAB PO TID, #90 TAB 5 Refills Prov:HUMZA SHUKLA MD 01/23/25 Mesalamine (Lialda) 1.2 Gm Tab, 1.2 GM PO BID, #60 TAB Prov:TOMEKA SHAH MD 07/06/23 Albuterol Sulfate (Albuterol Sulfate Hfa) 108 Mcg/Act Aer, 108 MCG IN Q4HP PRN, #1 AER 1 Refill Prov:SHEELA MORFIN PAC 02/07/23 Reported Medications Lamotrigine (Lamotrigine) 100 Mg Tab, 100 MG PO DAILY, TAB 09/18/24 Ustekinumab (IV) (Stelara) 130 Mg/26 Ml Inj, 90 MG IV k9igwps, INJ 09/18/24 Oxycodone Hcl (OxyCONTIN ER Tablet) 10 Mg Tb, 1 TAB PO BID, #60 TAB 09/02/24 Ipratropium Lowell (Ipratropium Lowell) 0.03 % Spr, 0.03 % NA QID, SPRAY 11/12/23 Gabapentin (Gabapentin) 100 Mg Cap, 100 MG PO TID, CAP 11/12/23 Amlodipine Besylate (Amlodipine Besylate) 5 Mg Tab, 5 MG PO DAILY, TAB 11/12/23 Oxycodone W/ Acetaminophen (Oxycodone/Acetaminophen 10-300 mg) 1 Tab Tab, 1 TAB PO Q4HR, TAB 11/12/23 Methotrexate (Methotrexate) 2.5 Mg Tab, 4 TAB PO QWEEKLY, #16 TAB 1 Refill 07/06/23 Propranolol HCl (Propranolol Hydrochloride) 20 Mg Tab, 1 TAB PO BID 07/05/23 Chlorthalidone (Chlorthalidone) 25 Mg Tab, 1 TAB PO DAILY 07/05/23 Folic Acid (Folic Acid) 1 Mg Tab, 1 TAB PO DAILY 07/05/23 Information Source: Patient Mode of Arrival: Ambulatory Severity: Moderate Past Medical History PAST MEDICAL HISTORY: Asthma, CAD, High Lipids, HTN, SD, TIA Past Medical History (Other): Small-vessel disease Surgical History: Cholecystectomy, , Hysterectomy, 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 Was a procedure done?: No Differential Dx Considerations may include: CVA, TIA, ICH, electrolyte imbalance, hypertensive urgency, weakness, other X-Ray, Labs, Meds, VS Vital Signs Date Time Temp Pulse Resp B/P (MAP) Pulse Ox O2 Delivery O2 Flow Rate FiO2 06/29/25 03:45 99.1 87 15 130/82 (98) 97 99.1 06/29/25 03:30 86 19 129/78 (95) 97 06/29/25 03:15 88 20 127/77 (94) 97 06/29/25 03:03 89 21 155/83 (107) 95 06/29/25 03:00 90 17 129/78 (95) 96 06/29/25 02:58 Room Air* 0 21 06/29/25 02:45 88 17 141/84 (103) 95 06/29/25 01:53 98.2 97 17 139/84 (102) 95 98.2 06/29/25 01:28 98.4 108 20 181/90 100 98.4 Lab Test 06/29/25 02:23 06/29/25 01:56 Range/Units POC Glucose 97 70-106 mg/dl White Blood Count 9.7 4.4-10.8 10^3/uL Red Blood Count 4.34 4.0-5.20 10^6/uL Hemoglobin 12.7 12.2-16.2 g/dL Hematocrit 38.0 36.0-46.0 % Mean Corpuscular Volume 87.6 80.0-100.0 fL Mean Corpuscular Hemoglobin 29.3 28.0-32.0 pg Mean Corpuscular Hemoglobin Concent 33.4 32.0-36.0 g/dL Red Cell Distribution Width 15.1 H 11.8-14.3 % Platelet Count 336 140-450 10^3/uL Mean Platelet Volume 6.8 L 6.9-10.8 fL Neutrophils (%) (Auto) 54.2 37.0-80.0 % Lymphocytes (%) (Auto) 36.1 10.0-50.0 % Monocytes (%) (Auto) 6.8 0.0-12.0 % Eosinophils (%) (Auto) 2.5 0.0-7.0 % Basophils (%) (Auto) 0.4 0.0-2.0 % Neutrophils # (Auto) 5.3 1.6-8.6 10 ^3/uL Lymphocytes # (Auto) 3.5 0.4-5.4 10 ^3/uL Monocytes # (Auto) 0.7 0-1.3 10 ^3/uL Eosinophils # (Auto) 0.2 0-0.8 10 ^3/uL Basophils # (Auto) 0 0-0.2 10 ^3/uL Nucleated Red Blood Cells 0.0 % Prothrombin Time 10.0 9.3-11.8 sec Prothrombin Time INR 0.94 0.9-1.15 Activated Partial Thromboplast Time 28.2 24.5-34.5 SEC Sodium Level 142 136-145 mmol/L Potassium Level 4.0 3.5-5.1 mmol/L Chloride Level 107 98-107 mmol/L Carbon Dioxide Level 25 20-31 mmol/L Anion Gap 10 5-15 Blood Urea Nitrogen 10 9-23 mg/dL Creatinine 0.88 0.550-1.02 mg/dL Glomerular Filtration Rate Calc 85 >90 mL/min BUN/Creatinine Ratio 11.4 10.0-20.0 Serum Glucose 90 74-106 mg/dL Calcium Level 10.4 8.7-10.4 mg/dL Magnesium Level 2.2 1.6-2.6 mg/dL Total Bilirubin 0.6 0.2-1.0 mg/dL Aspartate Amino Transferase (AST) 18 13-40 U/L Alanine Aminotransferase (ALT) 17 7-40 U/L Alkaline Phosphatase 100 46-116 U/L Troponin I High Sensitivity 4 </=34 ng/L B-Type Natriuretic Peptide 10.10 0-100 pg/mL Total Protein 7.6 5.7-8.2 g/dL Albumin 4.5 3.2-4.8 g/dL Current Medications Medications (Trade) Dose Ordered Sig/Megan Route Start Time Stop Time Status Last Admin Tenecteplase (Tnkase) 25 mg ONCE ONCE IV 06/29/25 02:15 06/29/25 02:16 DC 06/29/25 02:34 PROCEDURE: CT STROKE CTH Date: 06/29/2025 01:42 AM HISTORY: Suspected CVA TECHNIQUE: Contiguous axial images were acquired from the skull base through to the vertex. CONTRAST: None COMPARISON: CT HEAD WITHOUT CONTRAST on DOS: 09/02/24 RADIATION DOSE INFORMATION: Automated exposure control dose reduction techniques were used. FINDINGS: Ventricles: The ventricular system is normal in size and position. Masses: No mass effect is seen. Hemorrhage: No blood products are identified. Skull: The calvarium is intact. Sinuses: The paranasal sinuses are clear. Mastoids: No fluid is seen in the mastoid air cells. IMPRESSION: 1. No acute process is identified. This negative result will be reported to the patient's provider at this time. ENT: ELIZA ROTHT: [id number] UNIT: [id number] : 1985 LOC: ER ROOM / BED: / AGE / SEX: 40 / F ADM STATUS: REG ER SERVICE [id number] ORDERING PHYSICIAN: SYBIL ERAZO MD PROCEDURE(s): [place] - ANGIO HEAD/Neck REASON: CVA ORDER NUMBER(s): [id number], ACCESSION NUMBER(s): [id number] MEDICAL RECORDS NUMBER: [id number] PROCEDURE: CTA head and neck with and without contrast Date: 06/29/2025 02:55 AM HISTORY: CVA TECHNIQUE: Contiguous 5 mm axial images were acquired from the skull base through to the vertex. MIP reconstruction images are provided. CONTRAST: 100 cc Omnipaque 300 COMPARISON: None RADIATION DOSE INFORMATION: Automated exposure control dose reduction techniques were used. FINDINGS: Soft tissues of the neck appear grossly unremarkable. No lymphadenopathy is seen. The upper lungs appear unremarkable. CTA portions of the study demonstrate unremarkable appearance of the major vessels including the carotid systems, the basilar artery, the anterior cerebral arteries, middle cerebral arteries and the posterior cerebral arteries. Note: NASCET criteria is utilized in evaluation of internal carotid artery stenosis. IMPRESSION: 1. No acute process is identified. Time of 1ST Reevaluation: 01:38 Reevaluation 1ST: Unchanged Time of 2ND Reevaluation: 02:02 (Discussed with Dr. Motta, neurology who has evaluated the patient. Recommendation at this time is administration of TNK once CT head confirmed negative for ICH.) Reevaluation 2ND: Discussed with Dr. Motta Time of 3RD Reevaluation: 02:17 (Discussed with the Radiology via phone. CT head negative.) Reevaluation 3RD: Consultation: Neurology Patient Education/Counseling: Other (Need for admission, risk/benefit of TNK administration.) Family Education/Counseling: No Family Present SEPSIS Sepsis Screen Date sepsis recognized/suspect: Jun 29, 2025 Time Sepsis recognized/suspect: 0132 Recent Procedure: No On Antibiotic Therapy: No Respiratory Rate >20: No Heart Rate >90: No Temp<36 C (96.8 F) or >38.3 C: No SBP <90 or MAP <65 mmHG: No New Acute Mental Status Change: No Is the patient on CPAP, BIPAP,: No Physician Orders Stroke Assessment (06/29/25 01:33) Vital Signs .PER UNIT PROTOCOL (06/29/25 01:33) Lining Caser (06/29/25 01:33) Accurate Weight In Kg (06/29/25 01:33) Electrocardigram (06/29/25 01:33) Accucheck (06/29/25 01:33) Ct Head Cva (06/29/25 01:33) Chest Xray 1 View (06/29/25 01:33) * Neurology Consult (06/29/25 01:33) 2 Large Bore Ivs (20mg Or Larg (06/29/25 01:33) Nursing Dysphagia Screen (06/29/25 01:33) Neuro Checks Per Unit Protocol (06/29/25 01:33) Check Baseline Vital Signs (06/29/25 02:02) Neurological Assessment NEUROASS (06/29/25 02:02) Angio Head/Neck (06/29/25 02:20) Imaging Transfer Request (06/29/25 03:27) Vital Signs Date Time Temp Pulse Resp B/P (MAP) Pulse Ox O2 Delivery O2 Flow Rate FiO2 06/29/25 03:45 99.1 87 15 130/82 (98) 97 99.1 06/29/25 03:30 86 19 129/78 (95) 97 06/29/25 03:15 88 20 127/77 (94) 97 06/29/25 03:03 89 21 155/83 (107) 95 06/29/25 03:00 90 17 129/78 (95) 96 06/29/25 02:58 Room Air* 0 21 06/29/25 02:45 88 17 141/84 (103) 95 06/29/25 01:53 98.2 97 17 139/84 (102) 95 98.2 06/29/25 01:28 98.4 108 20 181/90 100 98.4 Laboratory Tests Test 06/29/25 01:56 White Blood Count 9.7 10^3/uL (4.4-10.8) Medications Medications Dose Ordered Sig/Megan Route Start Time Stop Time Status Last Admin Dose Admin Tenecteplase 25 mg ONCE ONCE IV 06/29/25 02:15 06/29/25 02:16 DC 06/29/25 02:34 Departure 1 Departure Time of Disposition: 03:59 Impression: Primary Impression: Ischemic cerebrovascular accident (CVA) Disposition: 02 SHORT TERM HOSPITAL Condition: Stable Comments 40-year-old female with ischemic CVA. Last known well time 10:30 p.m.. Stroke alert was called on patient's arrival to the emergency department. CT head was negative for acute ICH. Case was discussed with Neurology who evaluated patient and recommended TNK administration. TNK was administered at 2:34 a.m.. Patient remained stable during the ED observation. Case discussed with Dr. De Paz at [facility] requesting transfer for [facility], who requested a call back after CT angio head and neck has resulted. Case discussed with Gilbert Hoskins at [place] who accepted patient for transfer. CTA showed no acute LVO. Critical Care Note Critical Care Time?: Yes (35 min-critical care time only) Critical care comment: Due to a high probability of clinically significant, life threatening deterioration, the patient required my highest level of preparedness to intervene emergently and I personally spent this critical care time directly and personally managing the patient. This critical care time included obtaining a history; examining the patient; pulse oximetry; ordering and review of studies; arranging urgent treatment with development of a management plan; evaluation of patient's response to treatment; frequent reassessment; and, discussions with other providers. This critical care time was performed to assess and manage the high probability of imminent, life-threatening deterioration that could result in multi-organ failure. It was exclusive of separately billable procedures and treating other patients and teaching time. Please see my other sections and the rest of the note for further information on patient assessment and treatment. Stability Stability form required: No Heart Score Heart Score: Heart Score Response (Comments) Value History N/A 0 EKG N/A 0 Age N/A 0 Risk Factors N/A 0 Troponin N/A 0 Total 0 I personally scribed for SYBIL ERAZO MD ([email or web address]) on 06/29/25 at 01:44. Electronically submitted by Fredy Ahn ([email or web address]). I personally scribed for SYBIL ERAZO MD ([email or web address]) on 06/29/25 at 02:22. Electronically submitted by Fredy Ahn ([email or web address]). I personally scribed for SYBIL ERAZO MD ([email or web address]) on 06/29/25 at 03:51. Electronically submitted by Fredy Ahn ([email or web address]). SYBIL ERAZO MD Jun 29, 2025 01:44
--- NOTE | 2025-06-29 02:16 | DVH ---
MEDICAL RECORDS NUMBER: [id number] PROCEDURE: CT STROKE CTH Date: 06/29/2025 01:42 AM HISTORY: Suspected CVA TECHNIQUE: Contiguous axial images were acquired from the skull base through to the vertex. CONTRAST: None COMPARISON: CT HEAD WITHOUT CONTRAST on DOS: 09/02/24 RADIATION DOSE INFORMATION: Automated exposure control dose reduction techniques were used. FINDINGS: Ventricles: The ventricular system is normal in size and position. Masses: No mass effect is seen. Hemorrhage: No blood products are identified. Skull: The calvarium is intact. Sinuses: The paranasal sinuses are clear. Mastoids: No fluid is seen in the mastoid air cells. IMPRESSION: 1. No acute process is identified. This negative result will be reported to the patient's provider at this time.
[2025-06-29 02:17] LABS: Hematocrit 38.0 % (36.0-46.0); Hemoglobin 12.7 g/dL (12.2-16.2); Mean Corpuscular Hemoglobin 29.3 pg (28.0-32.0); Mean Corpuscular Volume 87.6 fL (80.0-100.0); Nucleated Red Blood Cells % 0.0 %
--- NOTE | 2025-06-29 02:17 | DVH ---
MEDICAL RECORDS NUMBER: [id number] PROCEDURE: XY CHEST XRAY 1 VIEW DATE: 06/29/2025 01:39 AM HISTORY: Suspected CVA Views:1 COMPARISON: XY CHEST TWO VIEWS ROUTINE on DOS: 09/18/24, XY CHEST PORTABLE on DOS: 09/02/24, XY CHEST TWO VIEWS ROUTINE on DOS: 03/14/23, XY CHEST TWO VIEWS ROUTINE on DOS: 02/07/23, CHEST WITHOUT CONTRAST on DOS: 08/09/22 FINDINGS/IMPRESSION: Lungs: Lungs are grossly clear. The study is somewhat hampered by overlying soft tissues. Mediastinum: Mediastinal structures appear unremarkable... Skeletal: The skeletal structures appear unremarkable.
--- NOTE | 2025-06-29 02:27 | BSKYNEURO ---
[place] Neuro Note # Demographics Consult Type: Acute Stroke Level 1 (0-4.5 hrs) Patient Location: Emergency Room First Name: Lance Last Name: Kezia Date of : 1985 Age: 40 Gender: Female Facility: [facility] Time of Initial Page (): 06/29/2025 01:35 First Contact with Site (): 06/29/2025 01:38 # HPI History: [id number] Patient is coming to the ER for left-sided facial droop, left sided weakness along with the headache. She went to bed at 2230 and woke up at 0045 and had sudden onset of left sided weakness. She is also having a headache, nausea. History of hypertension, HLD, migraines and COPD. on ASA 81 mg daily. # Scores Time of exam and NIHSS (): 06/29/2025 01:56 Level of Consciousness 1a: [0] = Alert; keenly responsive LOC Questions 1b: [0] = Answers both questions correctly LOC Commands 1c: [0] = Performs both tasks correctly Best Gaze 2: [0] = Normal Visual 3: [0] = No visual loss Facial Palsy 4: [2] = Partial paralysis Motor Arm Left 5a: [2] = Some effort against gravity Motor Arm Right 5b: [0] = No drift Motor Leg Left 6a: [2] = Some effort against gravity Motor Leg Right 6b: [0] = No drift Limb Ataxia 7: [0] = Absent Sensory 8: [1] = [id number] sensory loss Best Language 9: [0] = No aphasia Dysarthria 10: [1] = Equy-of-ilnrndad dysarthria Extinction and Inattention 11: [0] = No abnormality NIHSS Total: 8 # Assessment Impression: - Ischemic Stroke (Acute) # Plan Thrombolytic/Intervention: IV Thrombolysis Thrombolytic Dosing: IV tenecteplase 0.25 mg/kg, max dose 25 mg; single bolus IVP over 5 seconds Intraarterial Exclusion: - no large vessel occlusion (LVO) Time IV Thrombolytic Recommended (): 06/29/2025 02:01 Labs: - comprehensive metabolic panel - CBC - hemoglobin A1c - lipid panel Imaging: (urgency: routine): - MRI Brain without contrast Diagnostic Test: - echo with bubble study Therapy/Evaluation: - PT/OT evaluation - NPO until swallow evaluation Medication: - start statin with goal of LDL < 70 Thrombolytic Administration Recommendations: - I reviewed the risks/benefits/alternatives of IV thrombolytic therapy with the patient. They understand there is potential of life threatening hemorrhage from IV thrombolysis. I stated that I believe benefits outweighs risk. They wish to proceed with IV thrombolytic therapy. - I have collected independent history specific to time last normal or last known well. We have collaborated with the ED provider and at this time, we have the most current timeline with the information that is available. - No antiplatelets or anticoagulants for next 24 hrs unless indicated for emergent IA procedure or other life threatening situation - ICU admission - BP goal< 180/105 for 24hrs post Thrombolytic administration - Use Labetalol 10-20mg IV prn or Nicardipine gtt to maintain BP parameters - Call back if there is any decline in neurological condition Other: - If patient has any neurological deterioration please call me back immediately - LDL < 70 - permissive hypertension - telemetry monitoring - I have discussed my recommendations with the referring provider - will need event monitor or loop recorder as outpatient if atrial fibrillation not found as inpatient - neurology referral as outpatient Disposition: transfer to ICU # Demographics First Name: Lance Last Name: [facility] Facility: [facility] Yes KAYLAN FELIX MD Jun 29, 2025 02:27
[2025-06-29 02:31] LABS: Alanine Aminotransferase 17 U/L (7-40); Albumin 4.5 g/dL (3.2-4.8); Alkaline Phosphatase 100 U/L (46-116); Anion Gap 10 (5-15); BUN/Creatinine Ratio 11.4 (10.0-20.0); Blood Urea Nitrogen 10 mg/dL (9-23); Calcium 10.4 mg/dL (8.7-10.4); Carbon Dioxide 25 mmol/L (20-31); Chloride 107 mmol/L (98-107); Glucose 90 mg/dL (74-106); INR 0.94 (0.9-1.15); Magnesium 2.2 mg/dL (1.6-2.6); Partial Thromboplastin Time 28.2 SEC (24.5-34.5); Potassium 4.0 mmol/L (3.5-5.1); Prothrombin Time 10.0 sec (9.3-11.8); Sodium 142 mmol/L (136-145); Total Protein 7.6 g/dL (5.7-8.2)
[2025-06-29 02:32] LABS: Bilirubin, Total 0.6 mg/dL (0.2-1.0)
[2025-06-29] MEDS: TENECTEPLASE 50mg/10ml KIT IV ONE (02:34)
[2025-06-29] MEDS: IOHEXOL 350 MG/ML 100ML IJ ONE (03:07)
--- NOTE | 2025-06-29 03:28 | DVH ---
MEDICAL RECORDS NUMBER: [id number] PROCEDURE: CTA head and neck with and without contrast Date: 06/29/2025 02:55 AM HISTORY: CVA TECHNIQUE: Contiguous 5 mm axial images were acquired from the skull base through to the vertex. MIP reconstruction images are provided. CONTRAST: 100 cc Omnipaque 300 COMPARISON: None RADIATION DOSE INFORMATION: Automated exposure control dose reduction techniques were used. FINDINGS: Soft tissues of the neck appear grossly unremarkable. No lymphadenopathy is seen. The upper lungs appear unremarkable. CTA portions of the study demonstrate unremarkable appearance of the major vessels including the carotid systems, the basilar artery, the anterior cerebral arteries, middle cerebral arteries and the posterior cerebral arteries. Note: NASCET criteria is utilized in evaluation of internal carotid artery stenosis. IMPRESSION: 1. No acute process is identified.
[2025-06-29 04:00] VITALS: BP 145/86; PULSE 91; RESP 15; TEMP 99.1; O2SAT 97
== END 2025-06-29 04:09 | disposition short-term general hospital (02) ==
LOC: ER 01:17
DX: I63.9 Cerebral infarction, unspecified (principal); Z79.899 Other long term (current) drug therapy
CPT/HCPCS: 36415; 70450; 70496; 70498; 71045; 80053; 82947; 83735; 83880; 84484; 85025; 85610; 85730; 96374; 99291; J3101; Q9967; 82962